=== PATIENT | female | born 1975 | race African-American/Black ===

== ENCOUNTER 2024-07-22 15:08 | Outpatient (CLI) | payer OTHER, SELFPAY ==
[2024-07-22 15:46] LABS: Basophils Percent Auto 0.7 % (0.2-1.2); Eosinophils Absolute Auto 0.1 K/mm3 (0-0.3); Hemoglobin 12.4 g/dL (12.0-15.0); Immature Granulocyte Absolute 0.01 K/mm3 (0.00-0.031); Immature Granulocyte Percent A 0.2 % (0-0.5); Lymphocytes Percent Auto 44.4 % (18.3-44.2); Mean Corpuscular HGB Conc 31.8 g/dl (32-36); Mean Corpuscular Volume 91.3 fl (80-100); Mean Platelet Volume 11.7 fl (7.4-10.4); Monocytes Absolute Auto 0.4 K/mm3 (0.1-0.6); Monocytes Percent Auto 6.7 % (2.6-8.5); Neutrophils Absolute Auto 2.8 K/mm3 (1.3-6.7); Platelet Count Result 198 k/mm3 (150-375); Red Blood Count 4.27 M/mm3 (4.2-5.4); White Blood Count 5.9 K/mm3 (4.5-10.0)
[2024-07-22 16:04] LABS: Alanine Aminotransferase 12 U/L (6-35); Alkaline Phosphatase 69 U/L (38-126); Aspartate Amino Transferase 23 U/L (14-36); Bilirubin,Total 0.5 mg/dL (0.2-1.3); Blood Urea Nitrogen 11 mg/dL (7-17); Carbon Dioxide 29 mmol/L (22-30); Cholesterol 160 mg/dL (0-200); Estimated Glomerular Filt Rate > 60; Glucose 93 mg/dL (65-110); Phosphorus 3.7 mg/dL (2.5-4.5); Triglycerides 74 mg/dL (<150)
--- OUTSIDE RECORDS SUMMARY | 2024-07-22 16:04 | XMS_ITS | Patient Health Summary ---
Author Organization [facility] Address [address] [place] [address] Care Team Providers Care Transportation Engineering Technician Name Role Phone Rima Soto MD Primary Care Provider [phone] Note from [facility],non-owned Affiliates and Associated Physician Practices is amultiple site organization consisting of ambulatory clinics and hospital sitesin [place], [place], [place]. This disclosure is being madepursuant to the Care Everywhere program and may not contain all information available regarding this patient. Last updated 18.[facility] Allergies * Amlodipine Base(Rash) -Medium Criticality * Amoxicillin(Itching,Swelling) * Lisinopril(Shortness of Breath,Swelling) -High Criticality * Penicillins(Itching,Swelling) Medications * Be aware that medications may not be up to date on this document. Alwaysverify current medications with the patient. * albuterol HFA (PROVENTIL;VENTOLIN;PROAIR) 108 (90 Base) MCG/ACT inhaler (Started 01/01/2019) 8.5 g as needed 4 refills left * Multiple Vitamins-Minerals (CENTRUM SILVER 50+WOMEN PO) Take 50 mg by mouth 2 times daily * Probiotic Product (High Side Solutions) capsule(Started 11/22/2022) Take 1 (one) capsule by mouth once daily 3 refills by 11/22/2023 * Polyethylene Glycol 3350 (MIRALAX PO) Take by mouth as needed * CALCIUM CITRATE 600 mg TABS tablet Take by mouth 2 times daily * azelastine (Astelin) 0.1 % nasal spray(Started 04/04/2023) USE 2 SPRAYS IN EACH NOSTRIL TWICE DAILY * clobetasol (Temovate) 0.05 % solution(Started 05/30/2023) For hair * EPINEPHrine (Epipen) 0.3 MG/0.3ML auto-injector pen(Started 04/06/2023) ADMINISTER 0.3 ML IN THE MUSCLE 1 TIME NEEDED FOR ANAPHYLAXIS * montelukast (Singulair) 10 MG tablet(Started 05/30/2023) * docusate sodium (Colace) 50 MG capsule Take by mouth once daily * nystatin (Mycostatin) 719663 UNIT/GM cream(Started 03/15/2024) Apply to affected area 2 times daily 2 refills by 03/15/2025 Active Problems Problem Noted Date Diagnosed Date Morbid obesity 11/28/2022 Social History Tobacco Use Types Packs/Day Years Used Date Smoking Tobacco: Never Smokeless Tobacco: Never Tobacco Cessation:Counseling Given: Not Answered Alcohol Use Standard Drinks/Week Comments Yes 0 (1 standard drink = 0.6 oz pur e alcohol) occ. AUDIT-C Answer Date Recorded Q1: How often do you have a drink containing alc ohol? Monthly or less 03/20/2024 Q2: How many drinks containi ng alcohol do you have on a typical day when you are drinking? 1 or 2 03/20/2024 Q3: How often do you have si x or more drinks on one occasion? Less than monthly 03/20/2024 Overall Financial Resource Strain (CARDIA) Answe r Date Recorded How hard is it for you to pa y for the very basics like food, housing, medical care, and heating? Hard 11/28/2022 PHQ-2 Answer Date Recorded Patient Health Questionnaire-2 Score 0 03/28/2024 [facility] [place] of Occupat ional Health - Occupational Stress Questionnaire Answer Date Recorded Do you feel stress - tense, restless, nervous, or anxious, or unable to sleep at night because your mind is troubled all the time - these days? To some extent 11/28/2022 Hunger Vital Sign Answer Date Recorded Within the past 12 months, y ou worried that your food would run out before you got the money to buy more. Often true Within the past 12 months, t he food you bought just didn't last and you didn't have money to get more. Sometimes true 10/2022 PRAPARE - Transportation Answer Date Re corded In the past 12 months, has l ack of transportation kept you from medical appointments or from getting medications? No 10/2022 In the past 12 months, has l ack of transportation kept you from meetings, work, or from getting things needed for daily living? No 11/28/2022 Housing Stability Vital Sign Answer Jameel e Recorded In the last 12 months, was t here a time when you were not able to pay the mortgage or rent on time? Yes 11/28/2022 In the last 12 months, how many places have you lived? 1 11/28/2022 In the last 12 months, was t here a time when you did not have a steady place to sleep or slept in a long term (including now)? No 11/28/2022 Sex and Gender Information Value Date Recorded Sex Assigned at Not on file Gender Identity Not on file Sexual Orientation Not on file Last Filed Vital Signs Vital Sign Reading Time Taken Comments Blood Pressure 119/83 03/20/2024 11:40 AM CDT Pulse 109 03/20/2024 11:40 AM CDT Temperature 36.4 ??C (97.5 ??F) 03/20/2024 1 1:25 AM CDT Respiratory Rate 16 03/20/2024 11:4 0 AM CDT Oxygen Saturation 100% 03/20/2024 11: 40 AM CDT Inhaled Oxygen Concentration - - Weight 124.5 kg (274 lb 7.6 oz) 03/20/2024 8:21 AM CDT Height 177.8 cm (5' 10 ) 03/20/2024 8:21 AM CDT Body Mass Index 39.38 03/20/2024 8:21 AM CDT Medical Devices Implanted Type Area Cable Tender Device Identifier Shelf Expiration Date Model / Serial / Lot Kit Tissue Clsr Duo Tssl 1 Prefl Syr - [id number] Implanted:Qty : 1 on 11/28/2022 by Jennifer Carbajal MD at [facility] N/A: Stomach [employer] 08/20/2024 [id number] / [id number] / [id number] Procedures * CARDIAC RHYTHM STRIP ORDER(Performed 03/21/2024) * GROSS + MICRO EXAM (ILL)(Performed 03/20/2024) Performed for Gastroesophageal reflux disease, unspecified whether esophagitis present * NH EGD FLEX TRANSORAL W BX SNGL OR MULT(Performed 03/20/2024) Performed for Gastroesophageal reflux disease, unspecified whether esophagitis present * HCG URINE QUALITATIVE(Performed 03/20/2024) Performed for Pre-op exam * VITAMIN B1(Performed 09/18/2023) Performed for Status post laparoscopic sleeve gastrectomy, Intestinal malabsorption, unspecified type (HCC), Prediabetes * VITAMIN B12 FOLATE PANEL(Performed 09/18/2023) Performed for Status post laparoscopic sleeve gastrectomy, Intestinal malabsorption, unspecified type (HCC), Prediabetes * PTH INTACT(Performed 03/07/2023) Performed for Status post laparoscopic sleeve gastrectomy, Vitamin B1 deficiency, Vitamin D deficiency, Prediabetes, Intestinal malabsorption, unspecified type (HCC) * MAGNESIUM BLOOD(Performed 03/07/2023) Performed for Status post laparoscopic sleeve gastrectomy, Vitamin B1 deficiency, Vitamin D deficiency, Prediabetes, Intestinal malabsorption, unspecified type (HCC) * LIPID PROFILE(Performed 03/07/2023) Performed for Status post laparoscopic sleeve gastrectomy, Vitamin B1 deficiency, Vitamin D deficiency, Prediabetes, Intestinal malabsorption, unspecified type (HCC) * IRON + TRANSFERRIN PANEL(Performed 03/07/2023) Performed for Status post laparoscopic sleeve gastrectomy, Vitamin B1 deficiency, Vitamin D deficiency, Prediabetes, Intestinal malabsorption, unspecified type (HCC) * HEMOGLOBIN A1C(Performed 03/07/2023) Performed for Status post laparoscopic sleeve gastrectomy, Vitamin B1 deficiency, Vitamin D deficiency, Prediabetes, Intestinal malabsorption, unspecified type (HCC) * FERRITIN(Performed 03/07/2023) Performed for Status post laparoscopic sleeve gastrectomy, Vitamin B1 deficiency, Vitamin D deficiency, Prediabetes, Intestinal malabsorption, unspecified type (HCC) * COMPREHENSIVE METABOLIC PANEL(Performed 03/07/2023) Performed for Status post laparoscopic sleeve gastrectomy, Vitamin B1 deficiency, Vitamin D deficiency, Prediabetes, Intestinal malabsorption, unspecified type (HCC) * CBC W AUTO DIFFERENTIAL(Performed 03/07/2023) Performed for Status post laparoscopic sleeve gastrectomy, Vitamin B1 deficiency, Vitamin D deficiency, Prediabetes, Intestinal malabsorption, unspecified type (HCC) * VITAMIN D 25-HYDROXY(Performed 03/07/2023) Performed for Vitamin D deficiency * VITAMIN B12 FOLATE PANEL(Performed 02/01/2023) Performed for Vitamin B1 deficiency * VITAMIN B1(Performed 02/01/2023) Performed for Vitamin B1 deficiency, Status post laparoscopic sleeve gastrectomy * VITAMIN D 25-HYDROXY(Performed 02/01/2023) Performed for Vitamin D deficiency * CARDIAC RHYTHM STRIP ORDER(Performed 12/02/2022) * GLUCOSE - POINT OF CARE(Performed 11/30/2022) * PHOSPHORUS BLOOD(Performed 11/30/2022) * MAGNESIUM BLOOD(Performed 11/30/2022) * COMPREHENSIVE METABOLIC PANEL(Performed 11/30/2022) * CBC W AUTO DIFFERENTIAL(Performed 11/30/2022) * GLUCOSE - POINT OF CARE(Performed 11/30/2022) * GLUCOSE - POINT OF CARE(Performed 11/29/2022) * PHOSPHORUS BLOOD(Performed 11/29/2022) * GLUCOSE - POINT OF CARE(Performed 11/29/2022) * GLUCOSE - POINT OF CARE(Performed 11/29/2022) * GLUCOSE - POINT OF CARE(Performed 11/29/2022) * HEMOGLOBIN A1C(Performed 11/29/2022) * PHOSPHORUS BLOOD(Performed 11/29/2022) * MAGNESIUM BLOOD(Performed 11/29/2022) * COMPREHENSIVE METABOLIC PANEL(Performed 11/29/2022) * CBC W AUTO DIFFERENTIAL(Performed 11/29/2022) * GLUCOSE - POINT OF CARE(Performed 11/28/2022) * POTASSIUM BLOOD(Performed 11/28/2022) * MAGNESIUM BLOOD(Performed 11/28/2022) * GLUCOSE - POINT OF CARE(Performed 11/28/2022) * GLUCOSE - POINT OF CARE(Performed 11/28/2022) * PHOSPHORUS BLOOD(Performed 11/28/2022) * MAGNESIUM BLOOD(Performed 11/28/2022) * COMPREHENSIVE METABOLIC PANEL(Performed 11/28/2022) * CBC W AUTO DIFFERENTIAL(Performed 11/28/2022) * GROSS + MICRO EXAM (ILL)(Performed 11/28/2022) Performed for Morbid obesity (HCC) * NH LAP SLEEVE GASTRECTOMY(Performed 11/28/2022) Performed for Morbid obesity (HCC) * BLOOD TYPE VERIFICATION(Performed 11/16/2022) * TYPE + SCREEN PANEL(Performed 11/16/2022) Performed for Pre-op testing * BASIC METABOLIC PANEL (CALCIUM TOTAL)(Performed 09/20/2022) Performed for Potassium deficiency * VITAMIN B1(Performed 09/20/2022) Performed for Vitamin B1 deficiency * VITAMIN D 25-HYDROXY(Performed 09/20/2022) Performed for Vitamin D deficiency * CARDIAC RHYTHM STRIP ORDER(Performed 09/01/2022) * GROSS + MICRO EXAM (ILL)(Performed 08/31/2022) Performed for Gastroesophageal reflux disease, unspecified whether esophagitis present * NH EGD FLEX TRANSORAL W BX SNGL OR MULT(Performed 08/31/2022) Performed for Gastroesophageal reflux disease, unspecified whether esophagitis present * LAB MISC TEST(Performed 06/29/2022) * BASIC METABOLIC PANEL (CALCIUM IONIZED)(Performed 06/29/2022) * EKG(Performed 05/23/2022) * EKG(Performed 05/23/2022) * LAB MISC TEST(Performed 05/23/2022) * XR CHEST 2VW(Performed 05/23/2022) Results * CARDIAC RHYTHM STRIP ORDER (03/21/2024 3:08 PM CDT) Only the most recent of3 resultswithin the time period is included. Narrative 03/21/2024 3:08 PM CDT Ordered by an unspecified provider. Scanned Document CARDIAC SERVICES ORD ERABLES * GROSS + MICRO EXAM (ILL) (03/20/2024 10:58 AM CDT) Only the most recent of3 resultswithin the time period is included. Case Report Surgical Pathology Report ? Case: [id number] ? Authorizing Provider: ??Jennifer Carbajal MD ??Collected: ? 03/20/2024 10:58 AM ? Ordering Location: ? [facility] ?Received: ?03/20/2024 02:34 PM ? [facility] ? Pathologist: ? Carlos Allred MD ? Specimens: ?? A) - Gastric Biopsy, antrum biopsy to r/o hpylori ? B) - EG Junction Biopsy , EG Junction biopsy ? 03/21/2024 8:37 AM [facility] Final Diagnosis 03/21/2024 8:37 AM [facility] Microscopic Description and Comment Microscopic examination is performed and substantiates the above diagnosis. 03/21/2024 8:37 AM [facility] Clinical History A. Gastric antrum, biopsy: - Intact superficial gastric antral mucosa, with no histopathologic diagnosis, and is with no Helicobacter-like organisms identified. B. EG junction, biopsy: - Intact esophageal squamous mucosa, with no histopathologic diagnosis, and is negative for intestinal metaplasia or dysplasia. 03/21/2024 8:37 AM [facility] Gross Description A. The requisition and specimen(s) are identified with the patient's name (Ariane Kelsey), MRN, and . Received in formalin labeled antrum biopsy to R/O H pylori , are 2 boles-pink soft tissue fragments, 0.2 and 0.4 cm in greatest dimension. The specimen is submitted in toto in cassette A1. AW B. Received in formalin labeled ? EG junction biopsy? , is a boles-pink soft tissue fragment, 0.5 cm in greatest dimension. The specimen is submitted in toto in cassette B1. AW 03/21/2024 8:37 AM T [facility] Pathologist Location at [facility] 03/21/2024 8:37 AM T [facility] Disclaimer The performance characteristics of all immunohistochemical and indirect immunofluorescence stains (if any) cited in this report were determined by the Histopathology Laboratory of [facility]. Some of these tests were developed by our own laboratory and have not been cleared or approved by the US Food and Drug Administration. The FDA does not require this test to go through premarket FDA review. These tests are used for clinical purposes. They should not be regarded as investigational or for research. This laboratory is certified under the Clinical Laboratory Improvement Amendments (CLIA) as qualified to perform high complexity clinical laboratory testing. H&E slides and special stains prepared at [facility], [place]. [address] (CLIA# [id number]) unless otherwise specified. This case was interpreted by the [facility] Department of Pathology. When applicable, select reference laboratory testing is performed at the [facility], [address] [place] [id number]. 03/21/2024 8:37 AM T [facility] Embedded Images 03/21/2024 8:37 AM T [facility] Pathology/Cytology GASTRIC BIOPSY SPECIMEN / Unknown 03/20/2024 10:58 AM CDT 03/20/2024 2:34 PM CDT Comment:Pre-op diagnosis: Gastroesophageal reflux disease, unspecified whether esophagitis present [K21.9] Miscellaneous samples (specimen) BIOPSY SPECIMEN / Unknown 03/20/2024 11:00 AM CDT 03/20/2024 2:34 PM CDT Comment:Pre-op diagnosis: Gastroesophageal reflux disease, unspecified whether esophagitis present [K21.9] Jennifer Carbajal MD LAB - PATHOLOGY/ CYTOLOGY ORDERABLES Performing Organization Address [facility] Co de Phone Number [facility] [address] [place] [address] * HCG URINE QUALITATIVE (03/20/2024 8:22 AM CDT) hCG Qualitative Urine Negative Negative 03/20/2024 8:36 AM CDT [facility] Specific [place] UA 1.017 1.005 - 1.030 03/20/2024 8:36 AM CDT [facility] Urine URINE / Unknown Collection / Unknown 03/20/2024 8:22 AM CDT 03/20/2024 8:25 AM CDT Narrative [facility] - 03/20/2024 8:36 AM CDT Jennifer Carbajal MD LAB - URINALYSIS ORDERABLES Performing Organization Address [facility] Co de Phone Number [facility] [address] [place] [address] * VITAMIN B1 (09/18/2023) Only the most recent of3 resultswithin the time period is included. Blood BLOOD SPECIMEN / Unknown 09/18/2023 Willa Valencia APRN-BANANA LOADER LAB - M[facility]ADOU RADHA ORDERABLES Performing Organization Address [facility] de Phone Number OTHER LAB * VITAMIN B12 FOLATE PANEL (09/18/2023) Only the most recent of2 resultswithin the time period is included. Blood BLOOD SPECIMEN / Unknown 09/18/2023 Willa Valencia REFINERY OPERATOR CRUDE UNIT-[employer]ER LAB - [facility] RADHA ORDERABLES Performing Organization Address [facility] Co de Phone Number OTHER LAB * PTH INTACT (03/07/2023 3:27 PM CDT) PTH Intact 56.5 15.0 - 103.0 pg/mL 03/07/2023 6:30 PM CDT [facility] Blood BLOOD SPECIMEN / Unknown Lab Venipuncture / Unknown 03/07/2023 3:27 PM CDT 03/07/2023 4:40 PM CDT Willa Valencia REFINERY OPERATOR CRUDE UNIT-[employer]NA[employer] LOADER LAB - MMAADOU RADHA ORDERABLES [facility] [address] [place], [place] [id number] [place] [address] * HEMOGLOBIN A1C (03/07/2023 3:27 PM CDT) Only the most recent of2 resultswithin the time period is included. [facility] Hemoglobin A1c 5.2 4.2 - 5.6 % 03/07/2023 5:02 PM CDT [facility] Estimated Average Glucose 103 mg/dL 03/07/2023 5:02 PM CDT [facility] Blood BLOOD SPECIMEN / Unknown Lab Venipuncture / Unknown 03/07/2023 3:27 PM CDT 03/07/2023 4:40 PM CDT Narrative [facility] - 03/07/2023 5:02 PM CDT HbA1c Interpretation: Normal: < 5.7% Pre-diabetes: 5.7-6.4% Diabetes: Equal to or greater than 6.5% Test results diagnostic of diabetes should be repeated for confirmation. Treatment target values recommended by ADA and other clinical organizations should be used to evaluate metabolic control in patients. This test should not replace glucose testing for patients with Type 1 diabetes, pediatric patients, or women. ??Falsely low HbA1c results may be observed in patients with clinical conditions that shorten erythrocyte life span or decrease mean erythrocyte age such as the presence of unstable hemoglobin variants, elevated hemoglobin F level or other causes of hemolytic anemia. ??HbA1c may not accurately reflect glycemic control when clinical conditions that affect erythrocyte survival are present. ??Severe Iron deficiency anemia may yield falsely high results. ??Hemoglobin A1c assay should not be used to diagnose or monitor diabetes in patients with malignancy, recent blood transfusion, chronic kidney or liver disease. ?? This method may yield falsely low results when hemoglobin (HbF) exceeds 5% in the specimen. The [employer] assay for the measurement of HbA1c is a National Glycohemoglobin Standardization Program (NGSP) certified method. Willa Valencia [facility] LAB - [facility] ORDERABLES Performing Organization Address [facility] Co de Phone Number [facility] [address] * VITAMIN D 25-HYDROXY (03/07/2023 3:27 PM CDT) Only the most recent of3 resultswithin the time period is included. Vitamin D, 25 Hydroxy 35.4 30 - 80 ng/mL 03/07/2023 5:41 PM CDT [facility] Blood BLOOD SPECIMEN / Unknown Lab Venipuncture / Unknown 03/07/2023 3:27 PM CDT 03/07/2023 4:39 PM CDT Narrative [facility] - 03/07/2023 5:41 PM CDT Reference Values: The recommendation for 25-Hydroxy Vitamin D clinical decision points are as follows: Deficient ? < 20.0 ng/mL Insufficient ? 20.0-29.9 ng/mL Sufficient ? 30.0-100.0 ng/mL Potential Toxicity ? >100 ng/mL Reference: The Endocrine Society Clinical Practice Guidelines. 2011 If the 25-Hydroxy Vitamin D results are inconsistent with clinical evidence, it is recommended that follow-up testing using a method such as LC-MS/MS be performed to confirm the result. Denae Schmitt APRN-[facility] LAB - CHEMISTRY ORDERABLES Performing Organization Address [facility]/ZIP Co de Phone Number [facility] [address] * (ABNORMAL) CBC WITH DIFFERENTIAL (03/07/2023 3:27 PM CDT) Only the most recent of4 resultswithin the time period is included. [facility] WBC 8.4 4.0 - 10.0 x10E9/L 03/07/2023 4:52 PM [facility] RBC 4.46 3.93 - 5.22 x10E12/L 03/07/2023 4:52 PM [facility] Hemoglobin 12.8 11.2 - 15.7 gm/dL 03/07/2023 4:52 PM [facility] Hematocrit 40.0 34.1 - 44.9 % 03/07/2023 4:52 PM [facility] MCV 89.7 78.0 - 100.0 fl 03/07/2023 4:52 PM [facility] MCH 28.7 25.6 - 34.0 pg 03/07/2023 4:52 PM [facility] MCHC 32.0(L) 32.3 - 36.5 gm/dL 03/07/2023 4:52 PM [facility] RDW 15.2(H) 11.6 - 14.4 % 03/07/2023 4:52 PM [facility] MPV 12.8(H) 9.4 - 12.4 fl 03/07/2023 4:52 PM [facility] Platelet Count 199 163 - 369 x10E9/L 03/07/2023 4:52 PM [facility] Neutrophils % 56.0 40.0 - 75.0 % 03/07/2023 4:52 PM [facility] Lymphocytes % 34.6 19.3 - 53.1 % 03/07/2023 4:52 PM [facility] Monocytes % 7.4 4.7 - 12.5 % 03/07/2023 4:52 PM [facility] Eosinophils % 1.2 0.7 - 7.0 % 03/07/2023 4:52 PM [facility] Basophils % 0.6 0.1 - 1.2 % 03/07/2023 4:52 PM [facility] Immature Granulocytes 0.2 0 - 0.5 % 03/07/2023 4:52 PM [facility] Neutrophil Absolute 4.71 1.56 - 6.13 x10E9/L 03/07/2023 4:52 PM [facility] Lymphocytes Absolute 2.91 1.18 - 3.74 x10E9/L 03/07/2023 4:52 PM CDT [facility] Monocytes Absolute 0.62 0.24 - 0.86 x10E9/L 03/07/2023 4:52 PM CDT [facility] Eosinophils Absolute 0.10 0.04 - 0.54 x10E9/L 03/07/2023 4:52 PM CDT [facility] Basophils Absolute 0.05 0.01 - 0.08 x10E9/L 03/07/2023 4:52 PM CDT [facility] Immature Granulocytes Absolute 0.02 0 - 0.03 x10E9/L 03/07/2023 4:52 PM CDT [facility] nRBC Auto 0 <=0 /100 WBC 03/07/2023 4:52 PM CDT [facility] nRBC Absolute 0.00 <=0 x10E9/L 03/07/2023 4:52 PM CDT [facility] Blood BLOOD SPECIMEN / Unknown Lab Venipuncture / Unknown 03/07/2023 3:27 PM CDT 03/07/2023 4:40 PM CDT Willa Valencia REFINERY OPERATOR CRUDE UNIT-[employer] LOADER LAB - HEM ATOLOGY ORDERABLES Performing Organization Address [facility]/State/[facility] Co de Phone Number [facility] [address] * COMPREHENSIVE METABOLIC PANEL (03/07/2023 3:27 PM CDT) Only the most recent of4 resultswithin the time period is included. Glucose 92 70 - 125 mg/dL 03/07/2023 6:14 PM CDT [facility] Sodium 140 136 - 145 mmol/L 03/07/2023 6:14 PM CDT [facility] Potassium 3.8 3.4 - 5.1 mmol/L 03/07/2023 6:14 PM CDT [facility] Chloride 107 98 - 107 mmol/L 03/07/2023 6:14 PM CDT [facility] CO2 25 22 - 29 mmol/L 03/07/2023 6:14 PM CDT [facility] Calcium 9.30 8.4 - 10.2 mg/dL 03/07/2023 6:14 PM CDT [facility] Anion Gap 12 6 - 16 mmol/L 03/07/2023 6:14 PM CDT [facility] BUN 13.9 9.8 - 20.1 mg/dL 03/07/2023 6:14 PM CDT [facility] Creatinine 0.76 0.57 - 1.11 mg/dL 03/07/2023 6:14 PM CDT [facility] Alkaline Phosphatase 54 40 - 150 U/L 03/07/2023 6:14 PM CDT [facility] ALT 14 <=55 U/L 03/07/2023 6:14 PM CDT [facility] AST 18 5 - 34 U/L 03/07/2023 6:14 PM CDT [facility] Protein Total 7.4 6.4 - 8.3 gm/dL 03/07/2023 6:14 PM CDT [facility] Albumin 3.6 3.4 - 4.8 gm/dL 03/07/2023 6:14 PM CDT [facility] Globulin Total 3.8 2.6 - 4.0 gm/dL 03/07/2023 6:14 PM T [facility] Albumin/Globulin Ratio 0.9 0.9 - 1.6 03/07/2023 6:14 PM T [facility] Bilirubin Total 0.4 0.2 - 1.2 mg/dL 03/07/2023 6:14 PM CDT [facility] eGFR >90 >90 mL/min/1.7 3m2 03/07/2023 6:14 PM CDT [facility] Comment:The GFR result was c alculated using the updated CKD-EPI Creatinine Equation (2020). Blood BLOOD SPECIMEN / Unknown Lab Venipuncture / Unknown 03/07/2023 3:27 PM CDT 03/07/2023 4:40 PM CDT Willa Valencia REFINERY OPERATOR CRUDE UNIT-[employer] LAB - MAMADOU RADHA ORDERABLES Performing Organization Address City/State/[facility] Co de Phone Number [facility] [address] * MAGNESIUM BLOOD (03/07/2023 3:27 PM CDT) Only the most recent of5 resultswithin the time period is included. Magnesium 2.0 1.6 - 2.6 mg/dL 03/07/2023 6:14 PM CDT [facility] Blood BLOOD SPECIMEN / Unknown Lab Venipuncture / Unknown 03/07/2023 3:27 PM CDT 03/07/2023 4:40 PM CDT Willa Valencia APRN-BANANA LOADER LAB - MAMADOU RADHA ORDERABLES Performing Organization Address City/[facility]/ZIP Co de Phone Number [facility] [address] [place] [address] * IRON + TRANSFERRIN PANEL (03/07/2023 3:27 PM CDT) Iron 56 50 - 170 ug/dL 03/07/2023 6:14 PM CDT [facility] Transferrin 227 180 - 382 mg/dL 03/07/2023 6:14 PM CDT [facility] TIBC Calculated 284 261 - 497 ug/dL 03/07/2023 6:14 PM CDT [facility] Iron Saturation % 20 11 - 45 % 03/07/2023 6:14 PM CDT [facility] Blood BLOOD SPECIMEN / Unknown Lab Venipuncture / Unknown 03/07/2023 3:27 PM CDT 03/07/2023 4:40 PM CDT Willa Valencia APRN-BANANA LOADER LAB - MAMADOU RADHA ORDERABLES Performing Organization Address [facility] de Phone Number [facility] [address] [place] [address] * FERRITIN (03/07/2023 3:27 PM CDT) Ferritin 31 5 - 204 ng/mL 03/07/2023 6:43 PM CDT [facility] Blood BLOOD SPECIMEN / Unknown Lab Venipuncture / Unknown 03/07/2023 3:27 PM CDT 03/07/2023 4:40 PM CDT Willa Valencia APRN-BANANA LOADER LAB - MAMADOU RADHA ORDERABLES Performing Organization Address City/[facility]/ZIP Co de Phone Number [facility] [address] [place] [address] * LIPID PROFILE (03/07/2023 3:27 PM CDT) Cholesterol 166 <200 mg/dL 03/07/2023 6:14 PM CDT [facility] Triglycerides 77 <150 mg/dL 03/07/2023 6:14 PM CDT [facility] HDL Cholesterol 49 >40 mg/dL 3 6:14 PM CDT [facility] Chol HDL Ratio 3.4 1.0 - 6.0 03/07/2023 6:14 PM CDT [facility] LDL Calculated 102 65 - 130 mg/dL 03/07/2023 6:14 PM CDT [facility] VLDL Calculated 15 <=30 mg/dL 3 6:14 PM CDT [facility] Blood BLOOD SPECIMEN / Unknown Lab Venipuncture / Unknown 03/07/2023 3:27 PM CDT 03/07/2023 4:40 PM CDT Narrative [facility] - 03/07/2023 6:14 PM CDT Lipid Profile Comment: CHOLESTEROL LEVEL..................CLINICAL INTERPRETATION LESS THAN 200 MG/DL..............................DESIRABLE 200-239 MG/DL..............................BORDERLINE HIGH GREATER THAN 240 MG/DL................................HIGH LDL-CHOLESTEROL LEVEL..............CLINICAL INTERPRETATION LESS THAN 100 MG/DL................................OPTIMAL 100-129 MG/DL.................................NEAR OPTIMAL GREATER THAN 160 MG/DL...........................HIGH RISK HDL RISK LEVEL GREATER THEN 60 MG/DL............................DECREASED 40-60 MG/DL........................................AVERAGE LESS THAN 40 MG/DL...............................INCREASED TRIGLYCERIDE LEVEL..................CLINICAL INTERPRETATION LESS THAN 150 MG/DL...............................DESIRABLE 150-199 MG/DL...............................BORDERLINE HIGH 200-499 MG/DL..........................................HIGH GREATER THAN 500..................................VERY HIGH THE NATIONAL CHOLESTEROL EDUCATION PROGRAM HAS SET THE ABOVE GUIDELINES (REFERANCE VALUES) FOR CHOLESTEROL AND HDL. RISK ASSOCIATED WITH CHOLESTEROL/HDL RATIOS RISK....................MALE RATIO.............FEMALE RATIO 1/2 AVERAGE.................<3.4.......................<3.3 LOW RISK.................... 4.0 ...................... 3.8 AVERAGE..................... 5.0 ...................... 4.5 2X AVERAGE.................. 9.5 ...................... 7.0 3X AVERAGE...................>23........................>11 Willa Valencia APRN-BANANA LOADER LAB - MAMADOU RADHA ORDERABLES Performing Organization Address City/[facility] Co de Phone Number [facility] [address] [place] [address] * GLUCOSE - POINT OF CARE (11/30/2022 11:36 AM CDT) Only the most recent of9 resultswithin the time period is included. Glucose WB/POC 78 70 - 125 mg/dL 11/30/2022 11:39 AM CDT [facility] Specimen Type Cap Fingerstick 2022 11:39 AM CDT [facility] Blood BLOOD SPECIMEN / Unknown 11/30/2022 11:36 AM CDT 11/30/2022 11:39 AM CDT Jennifer Carbajal MD LAB - POINT OF C ARE ORDERABLES Performing Organization Address [facility] Co de Phone Number [facility] [address] [place] [address] * PHOSPHORUS BLOOD (11/30/2022 6:56 AM CDT) Only the most recent of4 resultswithin the time period is included. Phosphorus 3.09 2.3 - 4.7 mg/dL 11/30/2022 7:22 AM CDT [facility] Blood BLOOD SPECIMEN / Unknown Lab Venipuncture / Unknown 11/30/2022 6:56 AM CDT 11/30/2022 7:01 AM CDT Jennifer Carbajal MD LAB - CHEMISTRY ORDERABLES Performing Organization Address City/[facility]/ZIP Co de Phone Number [facility] [address] * POTASSIUM BLOOD (11/28/2022 8:59 PM CDT) Potassium 4.3 3.4 - 5.1 mmol/L 11/28/2022 9:29 PM CDT [facility] Comment:1+ hemolysis Blood BLOOD SPECIMEN / Unknown Lab Venipuncture / Unknown 11/28/2022 8:59 PM CDT 11/28/2022 9:02 PM CDT Jennifer Carbajal MD LAB - CHEMISTRY ORDERABLES Performing Organization Address [facility] Co de Phone Number [facility] [address] [place] [address] * BLOOD TYPE VERIFICATION (11/16/2022 10:23 AM CDT) ABO Rh O POS 11/16/2022 10:35 AM CDT [facility] Blood Bank BLOOD SPECIMEN / Unknown Lab Venipuncture / Unknown 11/16/2022 10:23 AM CDT 11/16/2022 10:26 AM CDT Jill Ennis MD LAB - BLOOD B ANK ORDERABLES Performing Organization Address [facility] Co de Phone Number [facility] [address] * TYPE + SCREEN PANEL (11/16/2022 10:11 AM CDT) ABO Rh O POS 11/16/2022 10:48 AM CDT [facility] Antibody Screen NEG 10:48 AM CDT [facility] Blood Bank BLOOD SPECIMEN / Unknown Lab Venipuncture / Unknown 11/16/2022 10:11 AM CDT 11/16/2022 10:16 AM CDT Jill Ennis MD LAB - BLOOD B ANK ORDERABLES [facility] [address] * (ABNORMAL) BASIC METABOLIC PANEL (CALCIUM TOTAL) (09/20/2022 10:04 AM CDT) [facility] Glucose 114 70 - 125 mg/dL 09/20/2022 11:04 AM CDT [facility] Sodium 140 136 - 145 mmol/L 09/20/2022 11:04 AM T [facility] Potassium 3.1(L) 3.4 - 5.1 mmol/L 09/20/2022 11:04 AM CDT [facility] Chloride 104 98 - 107 mmol/L 09/20/2022 11:04 AM CDT [facility] CO2 27 22 - 29 mmol/L 09/20/2022 11:04 AM T [facility] Calcium 9.1 8.4 - 10.2 mg/dL 09/20/2022 11:04 AM T [facility] Anion Gap 12 10 - 20 mmol/L 09/20/2022 11:04 AM T [facility] BUN 12.0 9.8 - 20.1 mg/dL 09/20/2022 11:04 AM T [facility] Creatinine 0.81 0.57 - 1.11 mg/dL 09/20/2022 11:04 AM T [facility] eGFR >90 >90 mL/min/1.7 3m2 09/20/2022 11:04 AM T [facility] Comment:The GFR result was c alculated using the updated CKD-EPI Creatinine Equation (2020). Blood BLOOD SPECIMEN / Unknown Lab Venipuncture / Unknown 09/20/2022 10:04 AM CDT 09/20/2022 10:40 AM CDT Denae Schmitt REFINERY OPERATOR CRUDE UNIT-BANANA LOADER LAB - CHEMISTRY ORDERABLES [facility] [address] [place] [address], [facility] * BASIC METABOLIC PANEL (CALCIUM IONIZED) (06/29/2022) Blood BLOOD SPECIMEN / Unknown Historical Provider LAB - CHEMISTRY O RDERABLES * LAB MISC TEST (06/29/2022) Only the most recent of2 resultswithin the time period is included. Blood BLOOD SPECIMEN / Unknown Historical Provider MD LAB SEND OUT * EKG (05/23/2022) Only the most recent of2 resultswithin the time period is included. Historical Provider SCANNING ONLY * XR CHEST 2VW (05/23/2022) Anatomical Region Laterality Modality Chest Other Historical Provider DIAGNOSTIC KARLI G ORDERABLES Care Teams Transportation Engineering Technician Relationship Specialty Start Date End Date Rima Soto MD [address] [place] [id number] PCP - General 02/12/19
--- OUTSIDE RECORDS SUMMARY | 2024-07-22 16:04 | XMS_ITS | Referral Summary ---
Author Organization [facility] Address [address] [place] [id number] Care Team Providers Care Manufacturing Storeperson Name Role Phone Rima Soto MD Primary Care Provider [phone] Allergies Active Allergy Reactions Criticality Noted Date Comments Amlodipine Rash Medium 09/13/2020 Amoxicillin Shortness of breath High 05/31/2017 Lisinopril Angioedema,Swelling High 03/02/2020 Lip Penicillins Swelling Medium 05/31/2017 Medications hydroCHLOROthia zide (HYDRODIURIL) 25 mg tablet TK 1 T PO QD 1 8 Active albuterol HFA (PROVENTIL HFA,VENTOLIN HFA,PROAIR HFA) 90 mcg/actuation inhaler Inhale 2 puffs every 6 (six) hours as needed 9 Active clobetasoL (TEMOVATE) 0.05 % external solution 2 Active EPINEPHrine 0.3 mg/0.3 mL auto-injection syringe Inject 0.3 mg into the muscle as instructed as needed 0 Active ibuprofen (ADVIL,MOTRIN) 600 mg tablet Take 600 mg by mouth 2 (two) times a day as needed 2 Active gabapentin (NEURONTIN) 300 mg capsule Take 300 mg by mouth daily Active Active Problems Problem Noted Date Diagnosed Date Chronic sinusitis 01/31/2020 Seasonal allergic rhinitis due to pollen 020 Morbid obesity 02/14/2018 Social History Tobacco Use Types Packs/Day Years Used Date Smoking Tobacco: Never Smokeless Tobacco: Never Alcohol Use Standard Drinks/Week Comments Yes 0 (1 standard drink = 0.6 oz pur e alcohol) socially Personal Safety Answer Date Recorded Getting School Help Needed Not on file 06/05 Comments Unknown Sex and Gender Information Value Date Recorded Sex Assigned at Not on file Legal Sex Female 5:26 PM CDT Gender Identity Not on file Sexual Orientation Not on file Last Filed Vital Signs Vital Sign Reading Time Taken Comments Blood Pressure 119/79 08/24/2021 8:30 AM BIOSTATISTICS TEACHER Pulse 80 08/24/2021 8:30 AM BIOSTATISTICS TEACHER Temperature 36.6 ??C (97.8 ??F) 08/24/2021 8:30 AM CS T Respiratory Rate - - Oxygen Saturation 100% 09/14/2019 12: 23 PM CDT Inhaled Oxygen Concentration - - Weight 180.6 kg (398 lb 3.2 oz) 08/24/2021 8:30 AM BIOSTATISTICS TEACHER Height 177.8 cm (5' 10 ) 08/24/2021 8:30 AM BIOSTATISTICS TEACHER Body Mass Index 57.14 08/24/2021 8:30 AM BIOSTATISTICS TEACHER Plan of Treatment Not on file [place] [address] [place] [address] [facility] Care Teams Manufacturing Storeperson Relationship Specialty Start Date End Date Rima Soto MD PCP - General Corporate Legal Secretary 02/12/18
--- OUTSIDE RECORDS SUMMARY | 2024-07-22 16:04 | XMS_ITS | Clinical Summary ---
Author Organization [facility] Address [address] [place] [address] Care Team Providers Care Flarer Name Role Phone Rima Soto MD Primary Care Provider [phone] Source Comments [facility],non-owned Affiliates and Associated Physician Practices is amultiple site organization consisting of ambulatory clinics and hospital sitesin [place], [place], [place]. This disclosure is being madepursuant to the Care Everywhere program and may not contain all information available regarding this patient. Last updated 18.[facility] Allergies Active Allergy Reactions Criticality Noted Date Comments Amlodipine Base Rash Medium 09/13/2020 Amoxicillin Itching,Swelling 02/12/2019 Lisinopril Shortness of Breath,Swelling High 022 Penicillins Itching,Swelling 02/12/2019 Medications * Be aware that medications may not be up to date on this document. Alwaysverify current medications with the patient. Medication Sig Dispensed Refills Start Date End Date Status albuterol HFA (PROVENTIL;VENTOLI N;PROAIR) 108 (90 Base) MCG/ACT inhaler 8.5 g as needed 4 01/01/2019 Active Multiple Vitamins-Minerals (CENTRUM SILVER 50+WOMEN PO) Take 50 mg by mouth 2 times daily Active Probiotic Product (Happify) capsuleIndications :Bariatric surgery status Take 1 (one) capsule by mouth once daily 30 capsule 3 11/22/2022 Active Polyethylene Glycol 3350 (MIRALAX PO) Take by mouth as needed Active CALCIUM CITRATE 600 mg TABS tablet Take by mouth 2 times daily Active azelastine (Astelin) 0.1 % nasal spray USE 2 SPRAYS IN EACH NOSTRIL TWICE DAILY 04/04/2023 Active clobetasol (Temovate) 0.05 % solution For hair 05/30/2023 Active EPINEPHrine (Epipen) 0.3 MG/0.3ML auto-injector pen ADMINISTER 0.3 ML IN THE MUSCLE 1 TIME NEEDED FOR ANAPHYLAXIS 04/06/2023 Active montelukast (Singulair) 10 MG tablet 05/30/2023 Active docusate sodium (Colace) 50 MG capsule Take by mouth once daily Active nystatin (Mycostatin) 166975 UNIT/GM cream Apply to affected area 2 times daily 30 g 2 03/15/2024 Active Active Problems Problem Noted Date Diagnosed Date Morbid obesity 11/28/2022 Encounters Date Type Department Care Team Description 07/05/2024 Orders Only [facility] Weight Management Services [address] [place] [address] Denae Schmitt APRN-FORM BUILDER Status post laparoscopic sleeve gastrectomy ; Vitamin B1 deficiency; Vitamin D deficiency; Morbid obesity (HCC); Intestinal malabsorption, unspecified type (HCC) 05/15/2024 Telephone [facility] [address] [place] [address] Jennifer Carbajal MD Appointment from Last 3 Months Family History Medical History Relation Name Comments Heart Failure Maternal Grandfather Diabetes; unknown type Paternal Grandfather Cancer Paternal Grandmother breast Relation Name Status Comments Maternal Grandfather Paternal Grandfather Paternal Grandmother Social History Tobacco Use Types Packs/Day Years [...] Recorded Patient Health Questionnaire-2 Score 0 03/28/2024 [facility] - Occupational Stress Questionnaire Answer Date Recorded [...] place to sleep or slept in a alf (including now)? No 11/28/2022 Sex and Gender [...] Mass Index 39.38 03/20/2024 8:21 AM CDT Plan of Treatment Upcoming Encounters Date Type Department Care Team (Late st Contact Info) Description 07/29/2024 3:00 PM ELEMENTARY SUPERVISOR Video Visit [facility] [address] [place] [phone] 07/29/2024 3:30 PM ELEMENTARY SUPERVISOR Video Visit [facility] [address] [place] [phone] Flaquita Matthews, YUE-FORM BUILDER [address] [place] [address] Health Maintenance Due Date Last Done Comments COLOGUARD (AGES 45-75) - COLON CA SCREENING 1976 COLON MONITORING 1976 COLONOSCOPY - COLON CA SCREENING 1976 CT COLONOGRAPHY - COLON CA SCREENING 1976 Colorectal Cancer Screening 1976 FIT - COLON CA SCREENING 1976 FLEX SIG - COLON CA SCREENING 1976 PAP SMEAR 1976 HIV SCREENING 1991 HEPATITIS C SCREENING 05/31/1994 DTAP/TDAP/TD VACCINES (1 - Tdap) 1995 HEPATITIS B VACCINE (1 of 3 - 19+ 3-dose series) 1995 PNEUMOCOCCAL VACCINE (1 of 2 - PCV) 1995 COVID-19 VACCINE (1 - season) 2024 INFLUENZA VACCINE (#1) 2024 DEPRESSION SCREENING 06/26/2024 12/01/2023 MAMMOGRAM 02/13/2025 02/13/2023, 02/13/2023 SCREENING FOR DIABETES 03/07/2026 , 03/07/2023, 11/30/2022, Additional history exists ZOSTER VACCINE (1 of 2) 2026 LIPID TESTING 03/07/2028 03/07/2023 HIB VACCINE Aged Out No longer eligi ble based on patient's age to complete this topic HPV VACCINE Aged Out No longer eligi ble based on patient's age to complete this topic MENINGOCOCCAL (Group B) VACCINE Aged Out No longer eligible based on patient's age to complete this topic MENINGOCOCCAL VACCINE Aged Out No jose angelia eligible based on patient's age to complete this topic Medical Devices Implanted Type Area Armoring Machine Operator Device Identifier Shelf Expiration Date Model / Serial / Lot Kit Tissue Clsr Duo Tssl 1 Prefl Syr - [id number] Implanted:Qty : 1 on 11/28/2022 by Jennifer Carbajal MD at [facility] N/A: Stomach RidePost 08/20/2024 [id number] / [id number] / [id number] Procedures Procedure Name Priority Date/Time Associated Diagnosis Comments HEMOGLOBIN A1C Routine 03/07/2023 3:27 PM CDT Status post laparoscopic sleeve gastrectomy Vitamin B1 deficiency Vitamin D deficiency Prediabetes Intestinal malabsorption, unspecified type (HCC) LIPID PROFILE Routine 03/07/2023 3:27 PM CDT Status post laparoscopic sleeve gastrectomy Vitamin B1 deficiency Vitamin D deficiency Prediabetes Intestinal malabsorption, unspecified type (HCC) from Last 3 Months or Most Recently Relevant to Health Maintenance Results * HEMOGLOBIN A1C (03/07/2023 3:27 PM CDT) Hemoglobin A1c 5.2 4.2 - 5.6 % 03/07/2023 5:02 PM CDT [facility] Estimated Average Glucose 103 mg/dL 03/07/2023 5:02 PM CDT [facility] Blood BLOOD SPECIMEN / Unknown Lab Venipuncture / Unknown 03/07/2023 3:27 PM CDT 03/07/2023 4:40 PM CDT Narrative [facility] - 03/07/2023 5:02 PM CDT [...] exceeds 5% in the specimen. The [address] Commissioner assay for the measurement of HbA1c is a National Glycohemoglobin Standardization Program (NGSP) certified method. Willa Valencia MARKETING CONTENT MANAGER-FORM BUILDER LAB - [facility] ORDERABLES Performing Organization Address City/State/[facility] Co de Phone Number [facility] [address] * LIPID PROFILE (03/07/2023 3:27 PM CDT) [facility] Cholesterol 166 <200 mg/dL 03/07/2023 6:14 PM CDT [facility] Triglycerides 77 <150 mg/dL 03/07/2023 6:14 PM CDT [facility] HDL Cholesterol 49 >40 mg/dL 3 6:14 PM CDT [facility] Chol HDL Ratio 3.4 1.0 - 6.0 03/07/2023 6:14 PM CDT [facility] LDL Calculated 102 65 - 130 mg/dL 03/07/2023 6:14 PM CDT [facility] VLDL Calculated 15 <=30 mg/dL 3 6:14 PM CDT [facility] Blood BLOOD SPECIMEN / Unknown Lab Venipuncture / Unknown 03/07/2023 3:27 PM CDT 03/07/2023 4:40 PM CDT [facility] - 03/07/2023 6:14 PM CDT Lipid [...] 9.5 ...................... 7.0 3X AVERAGE...................>23........................>11 Willa Valencia MARKETING CONTENT MANAGER-FORM BUILDER LAB - MAMADOU RADHA ORDERABLES [facility] [address] [place] [address], [facility] from Last 3 Months or Most Recently Relevant to Health Maintenance Advance Directives * Full Code (Latest Code Status on File) Date Activated Date Inactivated Comments 11/28/2022 10:48 AM 11/30/2022 3:14 PM Care Teams Flarer Relationship Specialty Start Date End Date Rima Soto MD [address] [place] [address] [address] [place] [address] PCP - General 02/12/19
--- OUTSIDE RECORDS SUMMARY | 2024-07-22 16:04 | XMS_ITS | Referral Summary ---
Author Organization [facility] Address [address] [facility] [place] [address] Care Team Providers Care Web Design Instructor Name Role Phone Rima Soto MD Primary Care Provider [phone] Source Comments [facility],non-[facility] Affiliates and Associated Physician Practices is amultiple site organization consisting of ambulatory clinics and hospital sitesin [place], [place], [place] and [place]. This disclosure is being madepursuant to the Care Everywhere program and may not contain all information available regarding this patient. Last updated 18.[facility] Encounters Date Type Department Care Team Description 07/05/2024 Orders Only [facility] Weight Management Services [address] [place] [address] Denae Schmitt, TRANSFORMER MAKER-GAMING DIRECTOR Status post laparoscopic sleeve gastrectomy ; Vitamin B1 deficiency; Vitamin D deficiency; Morbid obesity (HCC); Intestinal malabsorption, unspecified type (HCC) 05/15/2024 Telephone [facility] [address] [place] [address] Jennifer Carbajal MD Appointment from Last 3 Months Allergies Active Allergy Reactions Criticality Noted Date [...] mouth 2 times daily Active Probiotic Product (EcoBuddies™ Interactive) capsuleIndications :Bariatric surgery status Take 1 (one) [...] by mouth once daily Active nystatin (Mycostatin) [id number] UNIT/GM cream Apply to affected area 2 [...] Recorded Patient Health Questionnaire-2 Score 0 03/28/2024 [facility] - Occupational Stress [...] place to sleep or slept in a snf (including now)? No 11/28/2022 Sex and Gender [...] Mass Index 39.38 03/20/2024 8:21 AM CDT Functional Status Functional Status Response Date of Assess ment Is person deaf or have serious hearing difficult y? No 03/20/2024 Is person blind or have serious difficulty seein g? No 03/20/2024 Does person have serious dif ficulty walking/climbing stairs? No 03/20/2024 Does person have difficulty dressing/bathing? No 03/20/2024 Does person have difficulty doing errands alone? No 03/20/2024 Cognitive Status Response Date of Assessm ent Does person have difficulty concentrating/remembering/making decisions? No 03/20/2024 Plan of Treatment Upcoming Encounters Date Type Department Care Team (Late st Contact Info) Description 07/29/2024 3:00 PM FREIGHT FLOW SALES LEADER Video Visit [facility] [address] [place] [address] 07/29/2024 3:30 PM FREIGHT FLOW SALES LEADER Video Visit [facility] [address] [place] [address] Flaquita Matthews, YUE-JERALD [address] [place] [address] Medical Devices Implanted Type Area Tangible Personal Property Appraiser Device Identifier Shelf Expiration Date Model / Serial / Lot Kit Tissue Clsr Duo Tssl 1 Prefl [facility] - [id number] Implanted:Qty : 1 on 11/28/2022 by Jennifer Carbajal MD at [facility] N/A: St[employer] 08/20/2024 [id number] / [id number] / [id number] Procedures Procedure Name Priority Date/Time Associated Diagnosis [...] - 5.6 % 03/07/2023 5:02 PM CDT [facility] Estimated Average Glucose 103 mg/dL 03/07/2023 5:02 PM CDT [facility] Blood BLOOD SPECIMEN / Unknown Lab Venipuncture / Unknown 03/07/2023 3:27 PM CDT 03/07/2023 4:40 PM CDT Narrative [facility] - 03/07/2023 5:02 PM CDT [...] exceeds 5% in the specimen. The [employer] Attendant assay for the measurement of HbA1c is a National Glycohemoglobin Standardization Program (NGSP) certified method. Willa Valencia TRANSFORMER MAKER-GAMING DIRECTOR LAB - MAMADOU RADHA ORDERABLES Performing Organization Address City/State/[facility] Co de Phone Number [facility] [address] * LIPID PROFILE (03/07/2023 3:27 PM CDT) Cholesterol 166 <200 mg/dL 03/07/2023 6:14 PM CDT [facility] Triglycerides 77 <150 mg/dL 03/07/2023 6:14 PM CDT [facility] HDL Cholesterol 49 >40 mg/dL 3 6:14 PM CDT [facility] Chol HDL Ratio 3.4 1.0 - 6.0 03/07/2023 6:14 PM CDT [facility] LDL Calculated 102 65 - 130 mg/dL 03/07/2023 6:14 PM CDT [facility] VLDL Calculated 15 <=30 mg/dL 3 6:14 PM CDT [facility] Blood BLOOD SPECIMEN / Unknown Lab Venipuncture / Unknown 03/07/2023 3:27 PM CDT 03/07/2023 4:40 PM CDT Narrative [facility] - 03/07/2023 6:14 PM CDT [...] 9.5 ...................... 7.0 3X AVERAGE...................>23........................>11 Willa Valencia TRANSFORMER MAKER-GAMING DIRECTOR LAB - MAMADOU RADHA ORDERABLES [facility] [address] from Last 3 Months or Most Recently Relevant to Health Maintenance Advance Directives * Full Code (Latest Code Status on File) Date Activated Date Inactivated Comments 11/28/2022 10:48 AM 11/30/2022 3:14 PM Care Teams Web Design Instructor Relationship Specialty Start Date End Date Rima Soto MD [address] [facility] [address] [place] [address] PCP - General 02/12/19
--- OUTSIDE RECORDS SUMMARY | 2024-07-22 16:04 | XMS_ITS | Continuity of Care Document ---
Author Organization [facility] Address [address] [facility] [address] [place] [address] Phone Care Team Providers Care Insulation Mechanic Name Role Phone Monika Sutton MD Unavailable [...] [facility], [address] [facility] [address], [place], [place], [id number], tel:[phone] [facility] No Information [address] Lesley Frank. [address], [place], [address], . tel:[phone] Referring Provider: Rima Hooker, [address] [address], [place], [address]. tel:[phone] New (Level 4) OFFICE/OUTPA TIENT VISIT [facility], [address] [place] [address], [id number], [place] tel:[phone] [address] [place] [address] allergies and asthma (chief complaint) Body mass index (BMI) 40.0-44.9, adultModerate persistent asthmaToxic effect of venom of bee, undetermined, initial encounterGERD w/o esophagitisDrug reaction, initial encounterChronic rhinitis 3 Lesley Cheshil. [address], [place], [address], . tel:[phone] Referring Provider: Rima Hooker, [address], [address]. tel:[phone] Family History Family Member Type Diagnosis Age At Onset Father Problem Asthma Problem No family history of Lupus e rythematosus Father Problem Allergic rhinitis Sister Problem Thyroid disorder Payers Payer name Insurance type Covered democrat ID Authoriza tiernesto(s) [facility] [id number] Social History Type Description Quantity Date Captured Comments Alcohol Use Details Unknown Caffeine Use Details Unknown Tobacco Use Status No Information Smoking Status No Information Sex Female Chief Complaint And Reason For Visit No Information Reason For Referral Reason For Referral No Information History Of Present Illness Encounter Date Complaint History Of Prese nt Illness allergies and asthma AsthmaThe p atient has asthma on Flovent 110 ?cg 2 puffs BID (started 2 weeks ago) [...] + flonase. Then, she went to the [facility] ED. 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
--- OUTSIDE RECORDS SUMMARY | 2024-07-22 16:04 | XMS_ITS | Clinical Summary ---
Author Organization [facility] Address [address] [place] [address]. [place] [address] [place] [address] Care Team Providers Care Investigator Narcotics Name Role Phone Anatoliy Soto MD Primary Care Provider [phone] Allergies Active Allergy Reactions Criticality Noted Date Comments Amlodipine Rash Medium 09/13/2020 Amoxicillin Shortness of Breath High 05/31/2017 Lisinopril Angioedema,Swelling, Shortness of Breath High 03/02/2020 Lip Penicillins Swelling 05/31/2017 Medications albuterol sulfate HFA 108 (90 Base) MCG/ACT inhaler Inhale 2 puffs into the lungs every 6 (six) hours as needed for Wheezing. Active multi vitamin/minerals (THERA-M ENHANCED) tablet Take 1 tablet by mouth daily. Active calcium citrate 950 (200 CA) MG Tab tablet 1 tablet (950 mg total) 2 (two) times daily. Active polyethylene glycol (GLYCOLAX) packet Take 240 mLs (17 g total) by mouth daily. Dissolve powder in 240 mL water Active docusate sodium (COLACE) 50 MG capsule Take by mouth 2 (two) times daily. Active ondansetron (ZOFRAN-ODT) 4 MG disintegrating tablet Take 1 tablet (4 mg total) by mouth every 8 (eight) hours as needed. 15 tablet 4 Active cetirizine (ZYRTEC) 10 MG tablet Take 1 tablet (10 mg total) by mouth daily. 4 Active montelukast (SINGULAIR) 10 MG tablet Take 1 tablet (10 mg total) by mouth daily. 4 Active Active Problems Problem Noted Date Diagnosed Date Angioedema 03/02/2020 Chest pain 09/20/2017 Assessment & Plan (09/20/2017 11:19 PM CDT): Chest Pain R/o Acute, unresolved, stable. Risk factors for ACS: obesity, HTN. Last stress test 2014 normal, EF65%. EKG: no acute ischemia, CXR negative for acute cardiovascular process, cardiac enzymes negative x [3]. Heart score of 4 . DDx:Esophogeal spasm, GERD, Anxiety, MSK given TTP on exam -S/p 325mg ASA in the ED, continue ASA 81mg daily -Sublingual nitroglycerin 0.4 mg for recurrent chest pain suspicious for a cardiac cause -Tylenol prn for mild pain -Trend cardiac enzymes at 0, 6, 12 hours. -Admit for Cardiac monitoring via telemetry -NPO @midnight -Obtain cardiac stress test in AM Encounters Date Type Department Care Team Description 05/12/2024 2:06 PM CONFERENCE SERVICE COORDINATOR - 05/12/2024 3:21 PM CONFERENCE SERVICE COORDINATOR Hospital Encounter [facility] Care [address] [place] [address] Jesus Alberto Arnold MD Back Pain Discharge Disposition: Left Against Medical Advice 05/12/2024 Travel from Last 3 Months Family History Medical History Relation Comments Hypertension Father Hypertension Mother Breast Cancer Paternal Grandmother unsure of a ge at diagnosis Relation Status Comments Father Alive Mother Alive Paternal Grandmother Alive Social History Tobacco Use Types Packs/Day Years Used Date Smoking Tobacco: Never Passive Smoke Exposure: Never Smokeless Tobacco: Never Tobacco Cessation:Counseling Given: Not Answered Alcohol Use Standard Drinks/Week Comments Not Currently 0 (1 standard drink = 0.6 oz pur e alcohol) AUDIT-C Answer Date Recorded Frequency of Alcohol Consumption Never 06/11/2018 Average Number of Drinks Not on file 018 Frequency of Binge Drinking Not on file 05/26 Comments No Sex and Gender Information Value Date Recorded Sex Assigned at Not on file Legal Sex Female 1:22 PM CDT Gender Identity Not on file Sexual Orientation Not on file Last Filed Vital Signs Vital Sign Reading Time Taken Comments Blood Pressure 123/77 05/12/2024 2:11 PM CONFERENCE SERVICE COORDINATOR Pulse 64 05/12/2024 2:11 PM CONFERENCE SERVICE COORDINATOR Temperature 37.1 ??C (98.7 ??F) 05/12/2024 2:11 PM CS T Respiratory Rate 18 05/12/2024 2:11 PM CONFERENCE SERVICE COORDINATOR Oxygen Saturation 100% 05/12/2024 2:11 PM CONFERENCE SERVICE COORDINATOR Inhaled Oxygen Concentration - - Weight 122 kg (269 lb) 05/12/2024 2:11 PM CONFERENCE SERVICE COORDINATOR Height 177.8 cm (5' 10 ) 05/12/2024 2:11 PM CONFERENCE SERVICE COORDINATOR Body Mass Index 38.6 05/12/2024 2:11 PM CONFERENCE SERVICE COORDINATOR Plan of Treatment Health Maintenance Due Date Last Done Comments Cervical Cancer Screening Pap Smear (Age 30 to 64) Every 3 Years 1976 Colorectal Cancer Screening Colonoscopy (10 Years) 1976 Annual Physical 1979 DTaP, Tdap and Td Vaccines (5 - Tdap) 1987 02/18/1981, 05/26/1978, 1976, Additional history exists Hepatitis C 1994 Cervical Cancer Screening Pap with HPV Testing (Age 30 to 64) Every 5 Years 2006 Cervical Cancer Screening with HPV 2006 Hepatitis B Vaccines (2 of 3 - Hep B Twinrix 3-dose series) 10/24/2011 09/26/2011 COVID-19 Vaccine (3 - season) 2024 10/21/2020, 09/23/2020 Influenza Adult (#1) 2024 03/30/2018 Mammogram Screening 02/13/2025 02/13/2023 Meningococcal B Vaccine Aged Out No l onger eligible based on patient's age to complete this topic Meningococcal Vaccine Aged Out No jose angelia eligible based on patient's age to complete this topic Pneumococcal Vaccine: Pediatrics (0 to 5 Years) and At-Risk Patients (6 to 64 Years) Aged Out No longer eligible based on patient's age to complete this topic RSV Immunizations Under 20 Months Aged Out No longer eligible based on patient's age to complete this topic Procedures Procedure Name Priority Date/Time Associated Diagnosis Comments URINALYSIS AUTO DIP STAT 05/12/2024 2 :16 PM CONFERENCE SERVICE COORDINATOR MG SCREENING W CLEMENTE JUAN LUIS DIGI Routine 02/13/2023 9:21 AM CDT Encounter for screening mammogram for malignant neoplasm of breast from Last 3 Months or Most Recently Relevant to Health Maintenance Results * (ABNORMAL) URINALYSIS AUTO DIP (05/12/2024 2:16 PM CONFERENCE SERVICE COORDINATOR) SPECIMEN TYPE URINE CLEAN CATCH 05/12/2024 2:16 PM CONFERENCE SERVICE COORDINATOR [facility] CON[facility]IENT [facility]ARE COLOR (U) JAYLIN 05/12/2024 2:30 PM CONFERENCE SERVICE COORDINATOR [facility] TRANSPARENCY CLEAR 05/12/2024 2:30 PM CONFERENCE SERVICE COORDINATOR [facility] SPECIFIC GRAVITY (U) 1.025 1.001 - 1.030 05/12/2024 2:30 PM CONFERENCE SERVICE COORDINATOR [facility] U PH 7.0 5.0 - 9.0 05/12/2024 2:30 PM CONFERENCE SERVICE COORDINATOR [facility] LEUKOCYTES (U) NEGATIVE NEGATIVE 05/12/2024 2:30 PM CONFERENCE SERVICE COORDINATOR [facility] NITRITES NEGATIVE NEGATIVE 05/12/2024 2:30 PM CONFERENCE SERVICE COORDINATOR [facility] PROTEIN RANDOM (U) NEGATIVE <30 MG/DL 05/12/2024 2:30 PM CONFERENCE SERVICE COORDINATOR [facility] GLUCOSE (U) NEGATIVE NEGATIVE MG/DL 05/12/2024 2:30 PM CONFERENCE SERVICE COORDINATOR [facility] KETONES MG/DL (U) NEGATIVE NEGATIVE MG/DL 05/12/2024 2:30 PM CONFERENCE SERVICE COORDINATOR [facility] UROBILINOGEN 1.0(A) NEGATIVE MG/DL 05/12/2024 2:30 PM CONFERENCE SERVICE COORDINATOR [facility] BILIRUBIN (U) NEGATIVE NEGATIVE MG/DL 05/12/2024 2:30 PM CONFERENCE SERVICE COORDINATOR [facility] BLOOD (U) NEGATIVE NEGATIVE 05/12/2024 2:30 PM CONFERENCE SERVICE COORDINATOR [facility] URINE SPECIMEN OBTAINED BY CLEAN CATCH PROCEDURE / Unknown 05/12/2024 2:16 PM CONFERENCE SERVICE COORDINATOR Jesus Alberto Arnold MD URINE ORDERABLES Final Resul t [facility] [place] [address], [place] * MG SCREENING W CLEMENTE JUAN LUIS DIGI (02/13/2023 9:21 AM CDT) Anatomical Region Laterality Modality Breast Bilateral Mammography 02/13/2023 9:27 AM CDT Narrative 02/13/2023 9:30 AM CDT EXAMINATION: MG SCREENING W CLEMENTE JUAN LUIS DIGI ? INDICATIONS: Screening TECHNIQUE: Digital full field CC and MLO screening mammography bilaterally to include 3-D Tomosynthesis technique. This study was read with the assistance of a computer-aided detection system. HISTORY: Family history of breast cancer. No documented personal or first degree family history of breast cancer. No documented prior breast procedure or current breast complaint. COMPARISON: 01/31/2019. TISSUE DENSITY: There are scattered areas of fibroglandular density. FINDINGS: Scattered typically benign round and rim calcifications bilaterally. No suspicious microcalcification or mass. No developing asymmetry or architectural distortion. No axillary adenopathy. IMPRESSION: ??No significant interval change. No mammographic evidence of malignancy. ? RECOMMENDATION: ??Routine ScreeningBilateral OVERALL IMAGING ASSESSMENT: ACR BI-RADS 2 - BENIGN FINDING(S). ?? Ordered By: ANATOLIY SOTO Interpreted By: Darrell Cuevas, 02/13/2023 9:27 AM us Anatoliy Soto MD MAMMO Final Result from Last 3 Months or Most Recently Relevant to Health Maintenance Insurance Advance Directives Documents on File Type Date Recorded Patient Kettle Hand Expl anation Legal Documents 11/07/2022 8:47 AM BILLING REQ FOR JABARI [employer] LAW DOS 12/15/21 TO PRESENT MARYANNE Legal Documents 02/14/2022 11:37 AM [employer] FAXED BACK ON 02/10/22 Legal Documents 02/10/2022 5:08 PM COMPLET ED BILLING REQUEST FOR ATTY JABARI GONZALEZLIVAN * Full Code (Latest Code Status on File) Date Activated Date Inactivated Comments 03/02/2020 1:33 AM 03/02/2020 4:09 PM * Full Code Date Activated Date Inactivated Comments 09/20/2017 9:57 PM 09/21/2017 4:52 PM Care Teams Investigator Narcotics Relationship Specialty Start Date End Date Anatoliy Soto MD [address] [facility] [address] [place] [address] PCP - General 11/11/16
--- OUTSIDE RECORDS SUMMARY | 2024-07-22 16:04 | XMS_ITS | Continuity of Care Document ---
Author Organization [facility] Address [address] [place] [address] Phone Care Team Providers Care Product Owner Name Role Phone Braden [place] MD Unavailable [...] Diagnoses Date Provider Providers Copied on Encounter [facility], [address], [place], [place], [id number] , tel: [phone] [facility] No Information Feb-0 1 Stanislav Feliciano. [address] [facility], [place], [place], [id number]. [phone] [facility], [address], [place], [place], [address] , tel: [phone] [facility] OTALGIA NOS 5 Conversion Doctor. [address] [facility], [place], [address], [place]. [facility], [address], [place], [place], [address] , [place] tel: [phone] [facility] No Information 5 Stanislav Feliciano. [address] , [address], [place], [place], [id number]. tel:[phone] [facility], [address], [place], [place], [address] , tel: [phone] [facility] MORBID OBESITYHEADACHE [address] Ge Davis. [address] [facility], [address], [place], [place], [id number]. tel:[phone] [facility], [address], [place], [place], [id number] , tel: [phone] [facility] OBESITY NOSJOINT PAIN-L/LEGABNORM AL WEIGHT GAIN [address] [facility], [address], [place], [place], [id number]. tel:[phone] Family History Family Member Type Diagnosis Age At Onset No Information Payers Payer name Insurance type Covered libertarian ID Authoriza tion(s) No Information Social History [...]
--- OUTSIDE RECORDS SUMMARY | 2024-07-22 16:04 | XMS_ITS | Clinical Summary ---
Author Organization [facility] Address [address] [place] [address] Care Team Providers Care Fisher Clam Name Role Phone Rima Soto MD Primary Care Provider [phone] Allergies Active Allergy Reactions Criticality Noted Date [...] due to pollen 020 Morbid obesity 02/14/2018 Surgical History Surgery Date Site/Laterality Comments SECTION CHOLECYSTECTOMY TUBAL LIGATION Medical History Medical History Date Comments Asthma Hypertension Allergic rhinitis Tinnitus Family History Medical History Relation Name Comments Hypertension Father Diabetes Maternal Grandfather Diabetes Maternal Grandmother overweight Mother Relation Name Status Comments Father Maternal Grandfather Maternal Grandmother Mother Social History Tobacco Use Types Packs/Day Years [...] on file Sexual Orientation Not on file Obstetrics History Last Filed Vital Signs Vital Sign Reading Time Taken Comments Blood Pressure 119/79 08/24/2021 8:30 AM LEAD SHAREPOINT DEVELOPER Pulse 80 08/24/2021 8:30 AM LEAD SHAREPOINT DEVELOPER Temperature 36.6 ??C (97.8 ??F) 08/24/2021 8:30 AM CS T Respiratory Rate - - Oxygen Saturation 100% 09/14/2019 12: 23 PM CDT Inhaled Oxygen Concentration - - Weight 180.6 kg (398 lb 3.2 oz) 08/24/2021 8:30 AM LEAD SHAREPOINT DEVELOPER Height 177.8 cm (5' 10 ) 08/24/2021 8:30 AM LEAD SHAREPOINT DEVELOPER Body Mass Index 57.14 08/24/2021 8:30 AM LEAD SHAREPOINT DEVELOPER Plan of Treatment Health Maintenance Due Date Last Done Comments Breast Cancer Screening-Mammogram 1976 Cervical Cancer Screening 1976 Colon Cancer Screening-Colonoscopy 1976 Depression Screening 1976 Hepatitis C Screening 1976 DTaP/Tdap/Td Vaccine (5 - Tdap) 1987 02/18/1981, 05/26/1978, 1976, Additional history exists Regular Well Visit/Exam 18-64 1994 Influenza Vaccine (#1) 2024 03/30/2018 Pneumococcal vaccine <65 Aged Out No longer eligible based on patient's age to complete this topic Insurance IDPA [facility] PPO Care Teams Fisher Clam Relationship Specialty Start Date End Date Rima Soto MD PCP - General Physical Testing Supervisor 02/12/18
--- OUTSIDE RECORDS SUMMARY | 2024-07-22 16:04 | XMS_ITS | Clinical Summary ---
Author Organization [facility] Care Team Providers Care Florist Designer Name Role Phone Unavailable Primary Care Provider Unavailabl e Social History Tobacco Use Types Packs/Day Years Used Date Smoking Tobacco: Never Assessed Comments Unknown Sex and Gender Information Value Date Recorded Sex Assigned at Not on file Legal Sex Female 11:57 AM EXPORT FREIGHT MANAGER Gender Identity Not on file Sexual Orientation Not on file Plan of Treatment Health Maintenance Due Date Last Done Comments Hepatitis C Virus (HCV) Screening 1976 TdaP Immunization 1976 Pap Smear 1997 Cervical Cancer Screening (CCS) 2006 HPV/Cotest 2006 Hepatitis B Immunization (3 of 3 - 19+ 3-dose series) 11/21/2011 09/26/2011, 09/01/2010 Discussion re Starting/Frequency of Mammograms 2016 Colonoscopy 2021 Colorectal Cancer Screening 2021 Influenza Immunization (#1) 2024 03/30/2018 SARS-COV-2 Immunization ( season) 2024 10/21/2020, 09/23/2020 Respiratory Syncytial Virus (RSV) Immunization (Adult) (1 - 1-dose 75+ series) 2051 DTaP/Tdap/Td Immunization Discontinued 1980, 05/26/1978, 1976, Additional history exists Meningococcal Immunization (ACWY) Aged Out No longer eligible based on patient's age to complete this topic Pneumococcal Immunization Combined Aged Out No longer eligible based on patient's age to complete this topic Rotavirus Immunization Aged Out No lo nger eligible based on patient's age to complete this topic
[2024-07-22 16:08] LABS: Iron 72 ug/dL (37-170)
[2024-07-22 16:10] LABS: LDL Cholesterol Direct 75 mg/dL
[2024-07-22 16:11] LABS: Anion Gap 5 mmol/L (4-12); Chloride 102 mmol/L (98-107); HDL Direct 66 mg/dL; Magnesium 1.9 mg/dL (1.6-2.3); Parathyroid Intact 58.9 pg/mL (14.5-75.2); Potassium 3.9 mmol/L (3.4-5.0); Sodium 136 mmol/L (137-145)
[2024-07-22 16:17] LABS: Percent Iron Saturation 21 % (20-50)
[2024-07-22 17:13] LABS: Folic Acid 14.4 ng/mL (2.76->20)
[2024-07-22 23:26] LABS: Vitamin D 25 Hydroxy 46.8 ng/mL
[2024-07-26 13:23] LABS: Vitamin B1 24 nmol/L (8-30)
== END 2024-07-22 15:09 | disposition home or self-care (01) ==
PROVIDERS: PCP Family Medicine
DX: E51.9 Thiamine deficiency, unspecified (principal); E55.9 Vitamin D deficiency, unspecified; E66.01 Morbid (severe) obesity due to excess calories; K90.9 Intestinal malabsorption, unspecified; Z98.84 Bariatric surgery status
CPT/HCPCS: 36415; 80053; 80061; 82306; 82607; 82728; 82746; 83540; 83550; 83735; 83970; 84100; 84425; 85025

== ENCOUNTER 2025-04-04 08:28 | Outpatient (CLI) | payer OTHER, SELFPAY ==
--- OUTSIDE RECORDS SUMMARY | 2011-02-28 19:00 | XMS_ITS | Continuity of Care Document ---
Author Organization [facility] Address [address] [place] [address] Phone Care Team Providers Care Nursing Home Physician Name Role Phone Braden Colorado MD Unavailable Unavailable Allergies, Adverse Reactions, Alerts Substance Reaction Status Criticality No Known Drug Allergies Other Active No I nformation Medications Medication Instructions Dosage Effective Dates (start - stop) Status Comments CORTISPORIN 3.5-10K-1 DROPS 3 QID - Active Advance Directives Directive Yes / No Effective Date File Name No Information Encounters Encounter Description Practice Location Reason(s) For Visit Diagnoses Date Provider Providers Copied on Encounter [facility], [address], [place], [place], [id number] , tel: [phone] [facility] No Information Feb-0 1 Stanislav Feliciano. [address] [facility] [address], [place], [place], [address]. tel:[phone] [facility], [address], [place], [place], [address] , tel: [phone] [facility] OTALGIA NOS 5 Conversion Doctor. [address] [facility], [place], [address], [place]. [facility], [address], [place], [place], [address] , [place] tel: [phone] [facility] No Information 5 Stanislav Feliciano. [address] , [address], [place], [place], [address]. tel:[phone] [facility], [address], [place], [place], [address] , tel: [phone] [facility] MORBID OBESITYHEADACHE 5 Ge Davis. [address] [facility], [address], [place], [place], [address]. tel:[phone] [facility], [address], [place], [place], [address] , tel: [phone] [facility] OBESITY NOSJOINT PAIN-L/LEGABNORM AL WEIGHT GAIN 4 Ge Davis. [address] [facility], [address], [place], [place], [address]. tel:[phone] Family History Family Member Type Diagnosis Age At Onset No Information Payers Payer name Insurance type Covered green party ID Authoriza tion(s) No Information Social History Type Description Quantity Date Captured Comments Sex Female Smoking Status No Information Chief Complaint And Reason For Visit No Information Reason For Referral Reason For Referral No Information History Of Present Illness Encounter Date Complaint History Of Prese nt Illness No Information Functional Status Date Functional Assessmen t No Information Instructions Date Instruction Additional Infor mation No Information Assessments Type Assessment Date No Information Patient Care Teams Name Effective Dates (start - stop) Status Members No Information
--- OUTSIDE RECORDS SUMMARY | 2023-05-22 09:38 | XMS_ITS | Continuity of Care Document ---
Author Organization [facility] Address [address] [facility] [address] [place] [address] Phone Care Team Providers Care Briquette Operator Name Role Phone Monika Sutton MD Unavailable Unavailable Medications Medication Instructions Dosage Effective Dates (start - stop) Status Comments EpiPen 0.3 mg/0.3 mL injection, auto-injector inject 0.3 milliliter by intramuscular route once as needed for anaphylaxis 0.3 MG - Active azelastine 137 mcg (0.1 %) nasal spray aerosol spray 2 spray by intranasal route 2 times every day in each nostril - Active Flovent HFA 110 mcg/actuation aerosol inhaler inhale 2 puff by inhalation route 2 times every day 220 MCG - Active omeprazole 40 mg capsule,delayed release take 1 capsule by oral route 2 times every day before a meal 40 MG - Active Procedures Procedure Date PF Pre/Post Bronchodlator Perc Test Intradermal Test New (Level 4) OFFICE/OUTPATIENT VISIT Oc Advance Directives Directive Yes / No Effective Date File Name No Information Encounters Encounter Description Practice Location Reason(s) For Visit Diagnoses Date Provider Providers Copied on Encounter [facility], [address] [facility] [address], [place], [place], [id number], tel:[phone] [facility] No Information 3 Lesley Frank. [address], [place], [address], . tel:[phone] Referring Provider: Rima Hooker, [address] [address], [place], [address]. tel:[phone] New (Level 4) OFFICE/OUTPA TIENT VISIT [facility], [address], [id number], [place] tel:[phone] [address] [place] [address] allergies and asthma (chief complaint) Body mass index (BMI) 40.0-44.9, adultModerate persistent asthmaToxic effect of venom of bee, undetermined, initial encounterGERD w/o esophagitisDrug reaction, initial encounterChronic rhinitis 3 Lesley Cheshil. [address], [place], [address], . tel:[phone] Referring Provider: Rima Hooker, [address] [address], [place], [address]. tel:[phone] Family History Family Member Type Diagnosis Age At Onset Father Problem Asthma Problem No family history of Lupus e rythematosus Father Problem Allergic rhinitis Sister Problem Thyroid disorder Payers Payer name Insurance type Covered constitution party ID Authoriza tiernesto(s) [facility] [id number] Social History Type Description Quantity Date Captured Comments Alcohol Use Details Unknown Caffeine Use Details Unknown Tobacco Use Status No Information Smoking Status No Information Sex Female Chief Complaint And Reason For Visit No Information Reason For Referral Reason For Referral No Information History Of Present Illness Encounter Date Complaint History Of Prese nt Illness allergies and asthma AsthmaThe lili motta has asthma on Flovent 110 c g 2 puffs BID (started 2 weeks ago) and albuterol PRN (used about 2-3 times per week for chest tightness). They were diagnosed with asthma in her 20s. The patient has never been hospitalized for asthma. She notes that her symptoms are worse over the last month. She does have some symptoms with exertion over that time frame - chest tightness. She notes that the smell of bleach or other disinfectants seems to give her shortness of breath. They report nightly nocturnal awakenings with chest tightness over this 4 week time frame as well. She has had ED and UC visits this month. At , she was diagnosed with URI and treated with mucinex + flonase. Then, she went to the [facility] ED. There, she was started on antibiotics - she does not recall any imaging or testing. She reports significant dyspnea later on and ended up calling [phone]. She was taken back to the ED and had negative COVID-19 and flu testing. She had CTA chest which was negative for PE. She saw ENT last week. She did not have nasal endoscopy. She will have a CT sinus next week. She was started on doxycycline BID after that visit (10 day course).RhinitisThe patient has a history of perennial rhinitis with seasonal worsening in fall. The symptoms include nasal congestion, rhinorrhea (ant), sneezing w/ ocular pruritus and tearing. Currently, the patient is not on any medications. Previously they have tried cetirizine (zyrtec), loratadine (claritin), and Flonase. She previously had success with advil cold & sinus medications - but had to stop because of recent bariatric surgery.She recalls having environmental contact urticaria following cat exposure. She has never had allergy testing in the past.Stinging Insect AllergyShe reports after a bee sting many years ago, she had swelling + difficulty breathing. She went to the ED and is uncertain how she was treated. She thinks she was treated with IM epi plus benadryl. She previously had epinephrine auto-injectors (epipen or auvi-q) but believes she is due for a refill.She has GERD on omeprazole 40 mg daily.PMH: only as abovePSH: section x 2, tubal ligation, bariatric surgery, cholecystectomyMedication Allergies: Amoxicillin (PCN) - She reports an itchy rash plus difficulty breathing after taking Amoxicillin > 10 years. She does not recall how long she was on the medication for the symptoms started. She went to the ED because of these symptoms; she does not recall what happened at the ED. Lisinopril - angioedemaAmlodipine - headache and ankle swelling // side effect. 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)Environmental HistoryLives in an apartment w/ central air/forced heat, w/o evidence of mold/water damageFlooring in Bedroom: carpetPets: noneDataI reviewed outside records available in the EMR Functional Status Date Functional Assessmen t No Information Instructions Date Instruction Additional Infor coronamariela - start Azelastine 2 sprays each nostril twice daily- Please remember to point the nasal spray away from the nasal septum, up and outwards towards the top of the ears on both sides- if nose bleeding occurs, please hold the nasal spray for 2-3 days to allow for healing of the nasal tissue (you may use nasal saline gel or vaseline on a q-tip to help heal the tissue), then restart the nasal spray.- If nose bleeding recurs, please stop the nasal spray and contact our office to set up an appointment for further guidance Related to Chronic rhinitis Giving encouragement to exercise Related to Body mass index [BMI] 40.0-44.9, adult Assessments Type Assessment Date No Information Patient Care Teams Name Effective Dates (start - stop) Status Members No Information
--- OUTSIDE RECORDS SUMMARY | 2025-04-03 10:30 | XMS_ITS | Encounter Summary ---
Author Organization [facility] Address [address] [place] [address] Care Team Providers Care Chief Business Officer Name Role Phone Rima Soto MD Primary Care Provider [phone] Reason for Visit * Reason Comments Bariatric Surgery Follow-up Encounter Details Date Type Department Care Team (Late st Contact Info) Description 04/03/2025 10:30 AM CDT Office Visit [facility] Weight Management Services [address] [place] [phone] Marisela Cantu, PLYWOOD MATCHER-DIGITAL COMMENTATOR [address] [place] [phone] Status post laparoscopic sleeve gastrectomy (Primary Dx); Vitamin B1 deficiency; Vitamin D deficiency Social History Tobacco Use Types Packs/Day Years [...] Answer Date Recorded Patient Health Questionnaire-2 Score 4 04/03/2025 [facility] - Occupational Stress [...] place to sleep or slept in a senior living (including now)? No 11/28/2022 Comments Unknown Sex and Gender Information Value Date Recorded Sex Assigned at Not on file Legal Sex Female 2:45 PM CDT Gender Identity Female 03/09/2025 5:08 AM CDT Sexual Orientation Straight 03/09/2025 5: 08 AM CDT documented as of this encounter Last Filed Vital Signs Vital Sign Reading Time Taken Comments Blood Pressure 120/76 04/03/2025 10:00 AM CDT Pulse 52 04/03/2025 10:00 AM CDT Temperature - - Respiratory Rate 16 04/03/2025 10:00 AM CDT Oxygen Saturation 100% 04/03/2025 10:00 AM CDT Inhaled Oxygen Concentration - - Weight 121.1 kg (267 lb) 04/03/2025 10:00 AM CDT Height 177.8 cm (5' 10) 04/03/2025 10:00 AM CDT Body Mass Index 38.31 04/03/2025 10:00 AM CDT documented in this encounter Functional Status * Is person deaf or have serious hearing difficulty? Answer Date of Assessment Author No 03/20/2024 11:25 AM CDT Jacques Humphrey RN * Is person blind or have serious difficulty seeing? Answer Date of Assessment Author No 03/20/2024 11:25 AM CATET Jacques Humphrey RN * Does person have serious difficulty walking/climbing stairs? Answer Date of Assessment Author No 03/20/2024 11:25 AM CATET Jacques Humphrey RN * Does person have difficulty dressing/bathing? Answer Date of Assessment Author No 03/20/2024 11:25 AM CATET Jacques Humphrey RN * Does person have difficulty doing errands alone? Answer Date of Assessment Author No 03/20/2024 11:25 AM CATET Jacques Humphrey RN * Over the past 2 weeks, how often have you been bothered by any of the following problems? Question Answer Date of Assessment Author Little interest or pleasure in doing things Several days 04/03/2025 10:30 AM David Sellers RN Feeling down, depressed, or hopeless Nearly every day 04/03/2025 10:30 AM Susan Sellers RN Patient Health Questionnaire-2 Score 4 04/03/2025 10:30 AM CDT Jyothi Wood RN * How difficult have these problems made it for you to do your work, take care of things at home, or get along with other people? Answer Date of Assessment Author Not difficult at all 04/03/2025 10:30 AM CDT Susan Recio RN documented as of this encounter Mental Status * Does person have difficulty concentrating/remembering/making decisions? Answer Entry Date Author No 03/20/2024 11:25 AM Jacques Kan RN documented in this encounter Plan of Treatment Upcoming Encounters Date Type Department Care Team (Late st Contact Info) Description 05/13/2025 10:30 AM JEWEL HOLE FINISH OPENER Clinical Support [facility] Weight Management Services [address] [place] [address] 12/02/2025 11:00 AM CDT Office Visit [facility] Weight Management Services [address] [place] [address] Marisela Cantu, PLYWOOD MATCHER-DIGITAL COMMENTATOR [address] [facility] [place] [address] 12/02/2025 11:30 AM CDT Clinical Support [facility] Weight Management Services [address] [place] [address] 12/18/2025 9:30 AM CDT Office Visit [facility] Weight Management Services [address] [place] [phone] Jennifer Carbajal MD [address] [place] [phone] Scheduled Orders Name Type Priority Associated Diagnoses Orde r Schedule CBC WITH DIFFERENTIAL Lab Routine Status post laparoscopic sleeve gastrectomy 1 Occurrences starting 04/03/2025 until 04/03/2026 COMPREHENSIVE METABOLIC PANEL Lab Routine Status post laparoscopic sleeve gastrectomy 1 Occurrences starting 04/03/2025 until 04/03/2026 FERRITIN Lab Routine Status post laparoscopic sleeve gastrectomy 1 Occurrences starting 04/03/2025 until 04/03/2026 HEMOGLOBIN A1C Lab Routine Status post laparoscopic sleeve gastrectomy 1 Occurrences starting 04/03/2025 until 04/03/2026 LIPID PROFILE Lab Routine Status post laparoscopic sleeve gastrectomy 1 Occurrences starting 04/03/2025 until 04/03/2026 MAGNESIUM BLOOD Lab Routine Status post laparoscopic sleeve gastrectomy 1 Occurrences starting 04/03/2025 until 04/03/2026 VITAMIN D 25-HYDROXY Lab Routine Status post laparoscopic sleeve gastrectomy Vitamin D deficiency Expected: 06/07/2025 (Approximate), Expires: 04/03/2026 VITAMIN B12 FOLATE PANEL Lab Routine Status post laparoscopic sleeve gastrectomy 1 Occurrences starting 04/03/2025 until 04/03/2026 VITAMIN B1 Lab Routine Status post laparoscopic sleeve gastrectomy Vitamin B1 deficiency 1 Occurrences starting 04/03/2025 until 04/03/2026 TSH Lab Routine Status post laparoscopic sleeve gastrectomy 1 Occurrences starting 04/03/2025 until 04/03/2026 PTH INTACT+CALCIUM Lab Routine Status post laparoscopic sleeve gastrectomy 1 Occurrences starting 04/03/2025 until 04/03/2026 IRON + TRANSFERRIN PANEL Lab Routine Status post laparoscopic sleeve gastrectomy 1 Occurrences starting 04/03/2025 until 04/03/2026 documented as of this encounter Visit Diagnoses Diagnosis Status post laparoscopic sleeve gastrectomy- Primary Vitamin B1 deficiency Other and unspecified manifestations of thiamine deficiency Vitamin D deficiency documented in this encounter Care Teams Chief Business Officer Relationship Specialty Start Date End Date Rima Soto MD [address] [place] [phone] PCP - General 02/12/19 documented as of this encounter
--- OUTSIDE RECORDS SUMMARY | 2025-04-04 08:38 | XMS_ITS | Clinical Summary ---
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 Gender Identity Not on file Sexual Orientation Not on file Plan of Treatment Health Maintenance Due Date Last Done Comments Hepatitis C Virus (HCV) Screening 1976 TdaP Immunization 1976 Pap Smear 1997 Cervical Cancer Screening (CCS) 2006 HPV/Cotest 2006 Hepatitis B Immunization (3 of 3 - 19+ 3-dose series) 11/21/2011 09/26/2011, 09/01/2010 Cologuard 2021 Colonoscopy 2021 Colorectal Cancer Screening 2021 Immunochemical Fecal Occult Blood 2021 Influenza Immunization (#1) 2025 03/30/2018 SARS-COV-2 Immunization ( season) 2025 10/21/2020, 09/23/2020 Respiratory Syncytial Virus (RSV) Immunization (Adult) (1 - 1-dose 75+ series) 2051 DTaP/Tdap/Td Immunization Discontinued 1980, 05/26/1978, 1976, Additional history exists Human Papillomavirus (HPV) Immunization Aged Out No longer eligible based on patient's age to complete this topic Meningococcal Immunization (ACWY) Aged Out No longer eligible based on patient's age to complete this topic Pneumococcal Immunization Combined Aged Out No longer eligible based on patient's age to complete this topic Rotavirus Immunization Aged Out No lo nger eligible based on patient's age to complete this topic
--- OUTSIDE RECORDS SUMMARY | 2025-04-04 08:38 | XMS_ITS | Encounter Summary ---
Author Organization [facility] Address [address] [place] [address] Care Team Providers Care Obiee Obia Solution Architect Name Role Phone Rima Soto MD Primary Care Provider [phone] Encounter Details Date Type Department Care Team (Late st Contact Info) Description 04/01/2025 Results Follow-Up [facility] [address] [place] [address] Cindy Fagan, DO [address] [place] [id number] CULTURE, GENITAL W/ GRAM STAIN Social History Tobacco Use Types Packs/Day Years Used Date Smoking Tobacco: Never Passive Smoke Exposure: Never Smokeless Tobacco: Never Alcohol Use Standard Drinks/Week Comments Not Currently 0 (1 standard drink = 0.6 oz pur e alcohol) AUDIT-C Answer Date Recorded Frequency of Alcohol Consumption Never 06/11/2018 Average Number of Drinks Not on file 018 Frequency of Binge Drinking Not on file 05/26 Comments No Sex and Gender Information Value Date Recorded Sex Assigned at Female 12/02/2024 9:12 AM CDT Legal Sex Female 1:22 PM CDT Gender Identity Female 12/02/2024 9:12 AM CDT Sexual Orientation Straight 12/02/2024 9: 12 AM CDT documented as of this encounter Functional Status * RETIRED Are you deaf or do you have serious difficulty hearing Answer Date of Assessment Author Status No 03/02/2020 2:47 AM CDT Activ e * RETIRED Are you blind or do you have serious difficulty seeing, even when wearing glasses? Answer Date of Assessment Author Status No 03/02/2020 2:47 AM CDT Activ e * Do you have serious difficulty walking or climbing stairs? Answer Date of Assessment Author Status No 03/02/2020 2:47 AM CDT Anita nAdrade RN Active * Do you have difficulty dressing or bathing? Answer Date of Assessment Author Status No 03/02/2020 2:47 AM CATET Anita Andrade RN Active * Because of a physical, mental, or emotional condition, do you have difficulty doing errands alone such as visiting a doctor's office or shopping? Answer Date of Assessment Author Status No 03/02/2020 2:47 AM CATET Anita Andrade RN Active documented as of this encounter Mental Status * Because of a physical, mental, or emotional condition, do you have serious difficulty concentrating, remembering, or making decisions? Answer Entry Date Author Status No 03/02/2020 2:47 AM CATET Anita Andrade RN Active documented in this encounter Plan of Treatment Not on file documented as of this encounter Visit Diagnoses Not on filedocumented in this encounter Care Teams Obiee Obia Solution Architect Relationship Specialty Start Date End Date Rima Soto MD [address] [facility] [address] [place] [address] PCP - General 11/11/16 documented as of this encounter
--- OUTSIDE RECORDS SUMMARY | 2025-04-04 08:38 | XMS_ITS | Clinical Summary ---
Author Organization [facility] Address [address] [place] [address] Care Team Providers Care Crane Service Technician Name Role Phone Rima Soto MD Primary Care Provider [phone] Source Comments [facility],non-owned Affiliates and Associated Physician Practices is amultiple site organization consisting of ambulatory clinics and hospital sitesin [place], [place], [place] and [place]. This disclosure is being madepursuant to the Care Everywhere program and may not contain all information available regarding this patient. Last updated 18.[facility] [employer] Allergies Active Allergy Reactions Criticality Noted Date Comments Amlodipine Base Rash Medium 09/13/2020 Amoxicillin Itching,Swelling 02/12/2019 Lisinopril Shortness of Breath,Swelling High 022 Penicillins Itching,Swelling 02/12/2019 Medications * Be aware that medications may not be up to date on this document. Alwaysverify current medications with the patient. albuterol HFA (PROVENTIL;MYKEL TOLIN;PROAIR) 108 (90 Base) MCG/ACT inhaler 8.5 g as needed 4 9 Active Multiple Vitamins-Crane Follower als (CENTRUM SILVER 50+WOMEN PO) Take 50 mg by mouth 2 times daily Active Probiotic Product ([employer]) capsuleIndicat ions:Bariatric surgery status Take 1 (one) capsule by mouth once daily 30 capsule 3 3 Active Polyethylene Glycol 3350 (MIRALAX PO) Take by mouth as needed Active CALCIUM CITRATE 600 mg TABS tablet Take by mouth 2 times daily Active clobetasol (Temovate) 0.05 % solution For hair 3 Active EPINEPHrine (Epipen) 0.3 MG/0.3ML auto-injector pen ADMINISTER 0.3 ML IN THE MUSCLE 1 TIME NEEDED FOR ANAPHYLAXIS 3 Active montelukast (Singulair) 10 MG tablet 3 Active docusate sodium (Colace) 50 MG capsule Take by mouth once daily Active nystatin (Mycostatin) 165537 UNIT/GM cream Apply to affected area 2 times daily 30 g 5 Active VITAMIN E PO Active azelastine (Astelin) 0.1 % nasal spray USE 2 SPRAYS IN EACH NOSTRIL TWICE DAILY 3 04/03/20 25 Discontin ued(List Clean-Up) doxycycline hyclate (Vibramycin) 100 MG capsule Take 1 (one) capsule by mouth 5 04/03/20 25 Discontin ued(List Clean-Up) methylPREDNISo lone (Medrol Dosepak) 4 MG tablet TAKE 6 TABLETS ON DAY 1 DIRECTED ON PACKAGE AND DECREASE BY 1 TAB EACH DAY FOR A TOTAL OF 6 DAYS 5 04/03/20 25 Discontin ued(Tx Complete) [place]-3 Fatty Acids (fish oil) 500 MG capsule Take 500 (five hundred) mg by mouth once daily 04/03/20 25 Discontin ued(List Clean-Up) Turmeric (QC Tumeric Complex) 500 MG Take 1 tablet by mouth once daily 04/03/20 25 Discontin ued(List Clean-Up) Active Problems Problem Noted Date Diagnosed Date Morbid obesity 11/28/2022 Encounters Date Type Department Care Team Description 04/03/2025 10:30 AM CDT Office Visit [facility] Health Weight Management Services [address] [place] [address] Marisela Cantu APRN-JERALD Status post laparoscopic sleeve gastrectomy (Primary Dx); Vitamin B1 deficiency; Vitamin D deficiency 03/20/2025 Telephone [facility] Weight Management Services [address] [place] [address] Jennifer Carbajal MD Appointment 03/13/2025 Telephone [facility] [address] [place] [address] Jennifer Carbajal MD Appointment 03/12/2025 Telephone [facility] [address] [place] [address] Marisela Cantu APRN-JERALD Appointment 02/07/2025 Telephone [facility] [address] [place] [address] Jennifer Carbajal MD Appointment 01/29/2025 Telephone [facility] [address] [place] [address] Jennifer Carbajal MD Appointment 01/29/2025 Orders Only [facility] [address] [place] [phone] Flaquita Matthews APRN-CNP from Last 3 Months Family History Medical [...] Recorded Patient Health Questionnaire-2 Score 4 04/03/2025 [facility] - Occupational Stress [...] Orientation Straight 03/09/2025 5: 08 AM CDT Last Filed Vital Signs Vital Sign Reading Time Taken Comments Blood Pressure 120/76 04/03/2025 10:00 AM CDT Pulse 52 04/03/2025 10:00 AM CDT Temperature 36.4 C (97.5 F) 03/20/2024 11:25 AM CDT Respiratory Rate 16 04/03/2025 10:00 AM CDT Oxygen Saturation 100% 04/03/2025 10:00 AM CDT Inhaled Oxygen Concentration - - Weight 121.1 kg (267 lb) 04/03/2025 10:00 AM CDT Height 177.8 cm (5' 10) 04/03/2025 10:00 AM CDT Body Mass Index 38.31 04/03/2025 10:00 AM CDT Plan of Treatment Upcoming Encounters Date Type Department Care Team (Late st Contact Info) Description 05/13/2025 10:30 AM AUTOMOTIVE MECHANIC Clinical Support [facility] Health Weight Management Services [address] [place] [address] 12/02/2025 11:00 AM CDT Office Visit [facility] Health Weight Management Services [address] [place] [address] Marisela Cantu, POLISHER AND SANDER-GEAR SHAPER SET UP OPERATOR [address] [place] [address] 12/02/2025 11:30 AM CDT Clinical Support [facility] Health Weight Management Services [address] [place] [address] 12/18/2025 9:30 AM CDT Office Visit [facility] Health Weight Management Services [address] [place] [address] Jennifer Carbajal MD [address] [place] [address] Health Maintenance Due Date Last Done Comments COLOGUARD (AGES 45-75) - COLON CA SCREENING 1976 COLON MONITORING 1976 COLONOSCOPY - COLON CA SCREENING 1976 CT COLONOGRAPHY - COLON CA SCREENING 1976 Colorectal Cancer Screening 1976 FIT - COLON CA SCREENING 1976 FLEX SIG - COLON CA SCREENING 1976 HIV SCREENING 1991 HEPATITIS C SCREENING 05/31/1994 DTAP/TDAP/TD VACCINES (1 - Tdap) 1995 HEPATITIS B VACCINE (1 of 3 - 19+ 3-dose series) 1995 PAP SMEAR 1997 COVID-19 VACCINE (1 - season) 2025 INFLUENZA VACCINE (#1) 2025 ZOSTER VACCINE (1 of 2) 2026 MAMMOGRAM 11/30/2026 11/30/2024, 06/0 12/2024, 02/13/2023, Additional history exists SCREENING FOR DIABETES 07/22/2027 , 03/07/2023, 03/07/2023, Additional history exists LIPID TESTING 07/22/2029 07/22/2024, 08/25, 03/07/2023, Additional history exists DEPRESSION SCREENING Completed 08/29/2024, 12/01/19 24 HIB VACCINE Aged Out No longer eligi ble based on patient's age to complete this topic HPV VACCINE Aged Out No longer eligi ble based on patient's age to complete this topic MENINGOCOCCAL (Group B) VACCINE SHARED DECISION-MAKING Aged Out No longer eligible based on patient's age to complete this topic MENINGOCOCCAL GROUPS A/C/Y/W VACCINE Aged Out No longer eligible based on patient's age to complete this topic PNEUMOCOCCAL VACCINE Aged Out No long er eligible based on patient's age to complete this topic Medical Devices Implanted Type Area Vp Director Of Creative Strategy Device Identifier Shelf Expiration Date Model / Serial / Lot Kit Tissue Clsr Duo Tssl 1 Prefl Syr - [id number] Implanted:Qty : 1 on 11/28/2022 by Jennifer Carbajal MD at [facility] [place] N/A: Stomach Girard [employer] Mobile 08/20/2024 [id number] / [id number] / [id number] Procedures Procedure Name Priority Date/Time Associated Diagnosis Comments COMPREHENSIVE METABOLIC PANEL Routine 07/22/2024 Status post laparoscopic sleeve gastrectomy Vitamin B1 deficiency Vitamin D deficiency Morbid obesity Intestinal malabsorption, unspecified type LIPID PROFILE Routine 07/22/2024 Status post laparoscopic sleeve gastrectomy Vitamin B1 deficiency Vitamin D deficiency Morbid obesity Intestinal malabsorption, unspecified type from Last 3 Months or Most Recently Relevant to Health Maintenance Results * COMPREHENSIVE METABOLIC PANEL (07/22/2024) Blood BLOOD SPECIMEN / Unknown 07/22/2024 us Denae Schmitt POLISHER AND SANDER-GEAR SHAPER SET UP OPERATOR LAB - CHEMISTRY ORDERABL ES Final Result OTHER LAB * LIPID PROFILE (07/22/2024) Blood BLOOD SPECIMEN / Unknown 07/22/2024 Denae Schmitt POLISHER AND SANDER-GEAR SHAPER SET UP OPERATOR LAB - CHEMISTRY ORDERABL ES Final Result OTHER LAB from Last 3 Months or Most Recently Relevant to Health Maintenance Insurance [facility] Advance Directives * Full Code (Latest Code Status on File) Date Activated Date Inactivated Comments 11/28/2022 10:48 AM 11/30/2022 3:14 PM Care Teams Crane Service Technician Relationship Specialty Start Date End Date Rima Soto MD [address] [facility] [address] [place] [address] PCP - General 02/12/19
--- OUTSIDE RECORDS SUMMARY | 2025-04-04 08:38 | XMS_ITS | Clinical Summary ---
Author Organization [facility] Address [address] [place] [address] Care Team Providers Care Education Specialist Name Role Phone Rima Soto MD Primary Care Provider [phone] Allergies Active Allergy Reactions Criticality Noted Date [...] Comments Blood Pressure 119/79 08/24/2021 8:30 AM CARDIAC EXERCISE PHYSIOLOGIST Pulse 80 08/24/2021 8:30 AM CARDIAC EXERCISE PHYSIOLOGIST Temperature 36.6 C (97.8 F) 08/24/2021 8:30 AM CARDIAC EXERCISE PHYSIOLOGIST Respiratory Rate - - Oxygen Saturation 100% 09/14/2019 12: 23 PM CDT Inhaled Oxygen Concentration - - Weight 180.6 kg (398 lb 3.2 oz) 08/24/2021 8:30 AM CARDIAC EXERCISE PHYSIOLOGIST Height 177.8 cm (5' 10) 08/24/2021 8:30 AM CARDIAC EXERCISE PHYSIOLOGIST Body Mass Index 57.14 08/24/2021 8:30 AM CARDIAC EXERCISE PHYSIOLOGIST Plan of Treatment Not on file Insurance [employer] [facility], [facility] PPO Member Subscriber Plan / Payer (Ef fective 2021-Present) Name:Ariane Kelsey Relation to Subscriber:Self Name:Ariane Kelsey Payer ID:[id number] ([facility] Address: [facility] [id number] [place] [address] Care Teams Education Specialist Relationship Specialty Start Date End Date Rima Soto MD PCP - General It Quality Assurance Analyst 02/12/18
--- OUTSIDE RECORDS SUMMARY | 2025-04-04 08:39 | XMS_ITS | Clinical Summary ---
Author Organization [facility] Address [address] [place] [address] Care Team Providers Care Hall Monitor Name Role Phone Anatoliy Soto MD Primary Care Provider Allergies Active Allergy Reactions Criticality Noted Date [...] mg total) by mouth daily. 4 Active metroNIDAZOLE (FLAGYL) 500 MG tablet Take 1 tablet (500 mg total) by mouth 3 (three) times daily for 7 days. 21 tablet 5 04/06/20 25 Active fluconazole (DIFLUCAN) 150 MG tablet Take 1 tablet (150 mg total) by mouth once for 1 dose. 1 tablet 5 03/30/20 25 Active Problems Problem Noted Date Diagnosed Date [...] Encounters Date Type Department Care Team Description 04/01/2025 Results Follow-Up [facility] [address] [place] [address] Cindy Fagan DO CULTURE, GENITAL W/ GRAM STAIN 03/30/2025 3:08 PM CDT - 03/30/2025 4:20 PM CDT Hospital Encounter [facility] [address] [place] [address] Karina Dillon MD Headache; Female Gu Discharge Disposition: Home or Self Care (Routine Discharge) 03/30/2025 Travel from Last 3 Months Family History [...] Orientation Straight 12/02/2024 9: 12 AM CDT Last Filed Vital Signs Vital Sign Reading Time Taken Comments Blood Pressure 138/87 03/30/2025 3:14 PM CDT Pulse 70 03/30/2025 3:14 PM CDT Temperature 36.7 C (98.1 F) 03/30/2025 3:14 PM CDT Respiratory Rate 18 03/30/2025 3:14 PM CDT Oxygen Saturation 100% 03/30/2025 3:14 PM CDT Inhaled Oxygen Concentration - - Weight 119.3 kg (263 lb) 03/30/2025 3:14 PM CDT Height 177.8 cm (5' 10) 03/30/2025 3:14 PM CDT Body Mass Index 37.74 03/30/2025 3:14 PM CDT Plan of Treatment Health Maintenance Due Date [...] Twinrix 3-dose series) 10/24/2011 09/26/2011 COVID-19 Vaccine ( season) 2025 10/21/2020, 09/23/2020 Influenza Adult (#1) 2025 03/30/2018 Mammogram Screening 11/30/2026 11/30/2024, 3 Meningococcal B Vaccine Aged Out No l onger eligible based on patient's age to complete this topic Meningococcal Vaccine Aged Out No jose angelia eligible based on patient's age to complete this topic Pneumococcal Vaccine: Pediatrics (0 to 5 Years) and At-Risk Patients (6 to 49 Years) Aged Out No longer eligible based on patient's age to complete this topic RSV Immunizations Under 20 Months Aged Out No longer eligible based on patient's age to complete this topic Procedures Procedure Name Priority Date/Time Associated Diagnosis Comments CULTURE, GENITAL W/ GRAM STAIN STAT 03/30/2025 3:22 PM CDT URINALYSIS AUTO DIP STAT 03/30/2025 3 :21 PM CDT MG SCREENING W CLEMENTE JUAN LUIS DIGI Routine 11/30/2024 12:43 PM CDT Encounter for screening mammogram for malignant neoplasm of breast from Last 3 Months or Most Recently Relevant to Health Maintenance Results * (ABNORMAL) CULTURE, GENITAL W/ GRAM STAIN (03/30/2025 3:22 PM CDT) SPEC DESCRIPTION VAGINAL SPECIMEN 03/30/2025 3:23 PM CDT [facility] SPECIAL REQUESTS NO SPECIAL REQUEST 03/30/2025 3:23 PM CDT [facility] GRAM STAIN RESULT NEGATIVE FOR BACTERIAL VAGINOSIS 03/31/2025 4:29 PM CDT [facility] GRAM STAIN RESULT NO YEAST OR FUNGAL ELEMENTS SEEN 03/31/2025 4:29 PM CDT [facility] CULTURE RESULT LIGHT GROWTH OF PROTEUS MIRABILIS (A) 04/03/2025 7:03 AM CDT [facility] CULTURE RESULT LIGHT GROWTH OF ESCHERICHIA COLI (A) 04/03/2025 7:03 AM CDT [facility] CULTURE RESULT LIGHT GROWTH OF MORGANELLA MORGANII SSP. MORGANII (A) 04/03/2025 7:03 AM CDT [facility] CULTURE RESULT ABSENCE OF NORMAL LARISSA. 04/03/2025 7:03 AM CDT [facility] VAGINAL STRUCTURE / Unknown 03/30/2025 3:22 PM CDT 03/31/2025 2:02 PM CDT Narrative Organism Antibiotic Method Susceptibility Proteus mirabilis AMPICILLIN JERRY (VITEK) <=2: Sensitive Proteus mirabilis AMPICILLIN/SULBACTAM JERRY (VITEK) <=2: Sensitive Proteus mirabilis CEFTRIAXONE JERRY (VITEK) <=1: Sensitive Proteus mirabilis CEFTAZIDIME JERRY (VITEK) <=1: Sensitive Proteus mirabilis CEFAZOLIN JERRY (VITEK) <=4: Sensitive Proteus mirabilis GENTAMICIN JERRY (VITEK) <=1: Sensitive Proteus mirabilis LEVOFLOXACIN JERRY (VITEK) <=0.12: Sensitive Proteus mirabilis PIPERACILLIN/TAZOBACTAM JERRY (VITEK) <=4: Sensitive Proteus mirabilis TRIMETH-SULFAMETH. JERRY (VITEK) >=320: Resistant Escherichia coli AMPICILLIN JERRY (VITEK) 16: Intermediate Comment:INTERMEDIATE Escherichia coli AMPICILLIN/SULBACTAM JERRY (VITEK) 8: Sensitive Escherichia coli CEFTRIAXONE JERRY (VITEK) <=1: Sensitive Escherichia coli CEFTAZIDIME JERRY (VITEK) <=1: Sensitive Escherichia coli CEFAZOLIN JERRY (VITEK) <=4: Sensitive Escherichia coli ESBL JERRY (VITEK) NEG: Sensitive Escherichia coli GENTAMICIN JERRY (VITEK) <=1: Sensitive Escherichia coli LEVOFLOXACIN JERRY (VITEK) <=0.12: Sensitive Escherichia coli PIPERACILLIN/TAZOBACTAM JERRY (VITEK) <=4: Sensitive Escherichia coli TRIMETH-SULFAMETH. JERRY (VITEK) <=20: Sensitive Morganella morganii ssp. morganii AMPICILLIN JERRY (VITEK) >=32: Resistant Morganella morganii ssp. morganii AMPICILLIN/SULBACTAM JERRY (VITEK) 4: Sensitive Morganella morganii ssp. morganii CEFTRIAXONE JERRY (VITEK) <=1: Sensitive Morganella morganii ssp. morganii CEFTAZIDIME JERRY (VITEK) <=1: Sensitive Morganella morganii ssp. morganii CEFAZOLIN JERRY (VITEK) >=64: Resistant Morganella morganii ssp. morganii GENTAMICIN JERRY (VITEK) <=1: Sensitive Morganella morganii ssp. morganii LEVOFLOXACIN JERRY (VITEK) <=0.12: Sensitive Morganella morganii ssp. morganii PIPERACILLIN/TAZOBACTAM JERRY (VITEK) <=4: Sensitive Morganella morganii ssp. morganii TRIMETH-SULFAMETH. JERRY (VITEK) <=20: Sensitive Karina Dillon MD MICROBIOLOGY - GENERAL ORDE [facility] Final Result Performing Organization Address City/State/[facility] Co de Phone Number [facility] [address] [place] [address], [facility] [place] [address], * (ABNORMAL) URINALYSIS AUTO DIP (03/30/2025 3:21 PM CDT) SPECIMEN TYPE URINE CLEAN CATCH 03/30/2025 3:22 PM CDT [facility] COLOR (U) YELLOW 03/30/2025 3:32 PM CDT [facility] TRANSPARENCY CLEAR 03/30/2025 3:[address] [facility] SPECIFIC GRAVITY (U) 1.030 1.001 - 1.030 03/30/2025 3:32 PM CDT [facility] U PH 6.0 5.0 - 9.0 03/30/2025 3:[address] [facility] LEUKOCYTES (U) NEGATIVE NEGATIVE 03/30/2025 3:32 PM CDT [facility] NITRITES NEGATIVE NEGATIVE 03/30/2025 3:[address] [facility] PROTEIN RANDOM (U) 30(H) <30 MG/DL 03/30/2025 3:32 PM CDT [facility] GLUCOSE (U) NEGATIVE NEGATIVE MG/DL 03/30/2025 3:[address] [facility] KETONES MG/DL (U) TRACE(A) NEGATIVE MG/DL 03/30/2025 3:[address] [facility] UROBILINOGEN 1.0(A) NEGATIVE MG/DL 03/30/2025 3:[address] [facility] BILIRUBIN (U) SMALL(A) NEGATIVE MG/DL 03/30/2025 3:[address] [facility] BLOOD (U) NEGATIVE NEGATIVE 03/30/2025 3:[address] [facility] URINE SPECIMEN OBTAINED BY CLEAN CATCH PROCEDURE / Unknown 03/30/2025 3:21 PM CDT us Karina Diloln MD URINE ORDERABLES Final Resu lt [facility] [address] [place] [address], [place] * MG SCREENING W CLEMENTE JUAN LUIS DIGI (11/30/2024 12:43 PM CDT) Anatomical Region Laterality Modality Breast Bilateral Mammography 12/02/2024 11:1 5 AM CDT Impressions 12/02/2024 11:17 AM CDT IMPRESSION: No suspicious mammographic findings. Recommendation: 1. Routine Screening, Bilateral Assessment: ACR BI-RADS 2 - BENIGN FINDING(S) Ordered By: ANATOLIY SOTO Interpreted By: Amrit Myers MD, 12/02/2024 11:15 AM Narrative 12/02/2024 11:17 AM CDT [place] [id number] [facility] [place] [place] [address] Examination: Screening bilateral mammogram Exam Date: 11/30/2024 12:31 PM Clinical history: Routine screening. Family history of breast cancer in her grandmother. Comparison: 02/13/2023, 01/31/2019 Technique: Digital screening mammography of both breasts was performed. Breast tomosynthesis acquisitions were obtained and reviewed. This study was read with the assistance of a computer-aided detection system. Tissue density: There are scattered areas of fibroglandular density. Findings: No suspicious masses, malignant appearing calcifications, skin thickening or other abnormalities are present. Few benign-appearing calcifications. No significant change from the prior exam. Anatoliy Soto MD MAMMO Final Result from Last 3 Months or Most Recently Relevant to Health Maintenance Insurance MEDICAID [facility] Advance Directives Documents on File Type Date Recorded Patient Wellness Consultant Expl anation Legal Documents 11/07/2022 8:47 AM BILLING REQ FOR [employer] LAW DOS 12/15/21 TO PRESENT MARYANNE Legal Documents 02/14/2022 11:37 AM [employer] FAXED BACK ON 02/10/22 Legal Documents 02/10/2022 5:08 PM COMPLET ED BILLING REQUEST FOR ATTY [employer] * Full Code (Latest Code Status on File) Date Activated Date Inactivated Comments 03/02/2020 1:33 AM 03/02/2020 4:09 PM * Full Code Date Activated Date Inactivated Comments 09/20/2017 9:57 PM 09/21/2017 4:52 PM Care Teams Hall Monitor Relationship Specialty Start Date End Date Anatoliy Soto MD [address] [facility] [address] [place] [address] PCP - General 11/11/16
[2025-04-04 09:18] LABS: Hematocrit 39.2 % (37.0-47.0); Hemoglobin 12.5 g/dL (12.0-15.0); Immature Granulocyte Percent A 0.2 % (0-0.5); Lymphocytes Absolute Auto 1.72 K/mm3 (0.9-3.2); Mean Corpuscular HGB Conc 31.9 g/dl (32-36); Mean Corpuscular Hemoglobin 29.1 pg (26-34); Mean Corpuscular Volume 91.2 fl (80-100); Nucleated Red Blood Cells Absolute Auto 0.000 K/mm3 (0.0-0.012); Nucleated Red Blood Cells Perc 0.0 % (0.0-0.2); Platelet Count Result 191 k/mm3 (150-375); Red Blood Count 4.30 M/mm3 (4.2-5.4); White Blood Count 4.3 K/mm3 (4.5-10.0)
[2025-04-04 09:41] LABS: Alanine Aminotransferase 11 U/L (6-35); Albumin Level 3.7 g/dL (3.5-5.1); Alkaline Phosphatase 77 U/L (38-126); Anion Gap 4 mmol/L (4-12); Aspartate Amino Transferase 27 U/L (14-36); Bilirubin,Total 0.3 mg/dL (0.2-1.3); Blood Urea Nitrogen 10 mg/dL (7-17); Calcium 8.7 mg/dL (8.4-10.2); Carbon Dioxide 27 mmol/L (22-30); Chloride 106 mmol/L (98-107); Cholesterol 142 mg/dL (0-200); Estimated Glomerular Filt Rate > 60; Glucose 94 mg/dL (65-110); HDL Direct 69 mg/dL; Iron 56 ug/dL (37-170); Magnesium 2.2 mg/dL (1.6-2.3); Potassium 4.0 mmol/L (3.4-5.0); Sodium 137 mmol/L (137-145); Total Protein 7.1 g/dL (6.3-8.2); Triglycerides 53 mg/dL (<150)
[2025-04-04 09:53] LABS: Percent Iron Saturation 16 % (20-50)
[2025-04-04 09:55] LABS: Parathyroid Intact 86.4 pg/mL (14.5-75.2)
[2025-04-04 10:09] LABS: Hemoglobin A1C 5.3 % (<5.7)
[2025-04-04 10:16] LABS: Thyroid Stimulating Hormone 0.917 uIU/mL (0.465-4.680)
[2025-04-04 10:23] LABS: Ferritin 11.90 ng/mL (6.24-137)
[2025-04-04 10:52] LABS: Vitamin B12 566.0 pg/mL (239-931)
[2025-04-08 18:08] LABS: Vit. B1, Whole Blood 93.9 nmol/L (66.5-200.0)
== END 2025-04-04 08:29 | disposition home or self-care (01) ==
PROVIDERS: PCP Family Medicine
DX: E51.9 Thiamine deficiency, unspecified (principal); Z98.84 Bariatric surgery status
CPT/HCPCS: 36415; 80053; 80061; 82306; 82607; 82728; 82746; 83036; 83540; 83550; 83735; 83970; 84425; 84443; 85025